=== PATIENT | male | born 1980 | race Caucasian/White ===

== ENCOUNTER 2019-03-12 09:19 | Observation (INO) ==
[2019-03-12] MEDS ORDERED: IOPAMIDOL 100 ML BOTTLE IV ONE (09:20)
[2019-03-12] MEDS ORDERED: 0.9 % SODIUM CHLORIDE 1,000 ML IV ONE (09:24)
[2019-03-12] MEDS ORDERED: PROMETHAZINE 25 MG/ML VIAL IM ONE (09:32)
[2019-03-12] MEDS ORDERED: 0.9 % SODIUM CHLORIDE 2,000 ML IV ONE (09:33)
--- NOTE | 2019-03-12 09:37 | Emergency Department Note ---
Nausea/Vomiting/Diarrhea HPI - General Chief complaint: Nausea/Vomiting/Diarrhea Stated complaint: nausea/vomiting x 1 hour Time Seen by Provider: 03/12/19 09:26 Source: patient Mode of arrival: ambulatory Limitations: no limitations - History of Present Illness HPI Narrative: 38-year-old male with a 1 hour history of nausea vomiting. He says he threw up everything in his stomach and noticed some blood in the vomitus. He does not describe coffee-ground emesis. He was at his primary care provider's office and when they pushed on his belly to examine him that when the vomiting started. He does have chronic nausea and was getting set up for endoscopy but he does not have an appointment yet. He has multiple allergies including 1 to Zofran Some shortness of breath occasionally. His significant other notes that he wakes up at night gasping for breath and occasionally vomits - Related Data Home Medications Medication Instructions Recorded Confirmed OLANZapine [Zyprexa] 20 mg PO DAILY 09/29/17 01/02/19 Omeprazole [PriLOSEC] 40 mg PO ACB 09/29/17 01/02/19 Amitriptyline HCl 150 mg PO HS 04/25/18 01/02/19 Previous Rx's Medication Instructions Recorded Omeprazole [Prilosec] 20 mg PO ACB #15 cap 04/25/18 Diphenoxylate HCl/Atropine 1 tab PO Q4HP PRN #15 tab 12/26/18 [Lomotil] Promethazine [Phenergan] 25 mg PO Q4-6HP PRN #12 tab 12/26/18 Allergies Allergy/AdvReac Type Severity Reaction Status Date / Time ciprofloxacin [From Cipro] Allergy Mild Swelling Verified 02/08/19 16:02 Penicillins Allergy Unknown Anaphylaxis Verified 02/08/19 16:02 cephalexin AdvReac Severe Anaphylaxis Verified 02/08/19 16:02 doxycycline [From Vibramycin] AdvReac Severe Anaphylaxis Verified 02/08/19 16:02 ondansetron AdvReac Unknown Other Verified 02/08/19 16:02 [From Zofran (as hydrochloride)] prochlorperazine AdvReac Unknown Other Verified 02/08/19 16:02 [From Compazine] ketorolac [From Toradol] AdvReac Anxiety Verified 02/08/19 16:02 Review of Systems All systems ED: reviewed and negative except as stated. Past Medical History - Past Medical History Attestation: Yes: The following information was validated with the patient. [facility] Narrative: Family History (Last Updated 02/08/19 @ 16:50 by Loy Tinsley DO) Father Pancreatic cancer Mother Diabetes mellitus, type 2 Brother Diabetes mellitus, type 2 Medical History (Last Updated 02/08/19 @ 16:49 by Loy Tinsely DO) Schizoaffective disorder (Chronic) History of acute pancreatitis (Resolved) Obesity (BMI 30.0-34.9) (Chronic) Gastritis (Resolved) Pneumonia (Resolved) Past Surgical History (Last Updated 12/26/18 @ 09:48 by Loy Tinsley DO) Status post appendectomy (Acute) Status post cholecystectomy (Acute) Medical history: Reports: GERD, pneumonia, other (pancreatitis - EtOH related. Right wrist fracture 2017. DENIES: Diverticulitis, kidney stones, pyelonephritis, peptic ulcer disease.). Denies: asthma, DVT, DM, hypertension, hypothyroidism, pulmonary embolus Psychiatric history: Reports: other (Schizoaffective disorder.). Denies: anxiety, depression Surgical history ED: Reports: appendectomy, cholecystectomy - Social History smoking status: Never smoker Alcohol use: Reports: None Drug use: Reports: marijuana (rare) Physical Exam Overweight male in some distress secondary to nausea and vomiting. Normocephalic atraumatic. Conjunctive are clear sclerae nonicteric. No nasal discharge or congestion. Oropharynx pink and moist. Posterior pharynx clear. Large tongue with [place]atti 4. Neck is supple without lymphadenopathy or thyromegaly. No carotid bruit. Heart is regular rate and rhythm no murmur appreciated. Lungs are clear to auscultation bilaterally without wheezes rales rhonchi or respiratory. Abdomen is soft nontender nondistended except for the epigastrium which is mildly tender. No pedal edema. +2 radial pulse. Alert oriented able answer questions per Limitations: no limitations Course Vital Signs Temperature 97.7 F 03/12/19 09:20 Pulse Rate 125 H 03/12/19 09:20 Respiratory Rate 24 H 03/12/19 09:20 Blood Pressure 113/69 03/12/19 09:20 Pulse Oximetry (%) 99 03/12/19 09:20 Temperature 97.7 F 03/12/19 09:20 Pulse Rate 88 03/12/19 13:30 Respiratory Rate 24 H 03/12/19 09:20 Blood Pressure 113/92 03/12/19 12:47 Pulse Oximetry (%) 86 L 03/12/19 13:30 Nausea/Vomiting/Diarrhea - Lab Data Lab results reviewed: Yes I reviewed the patient's lab results. Result diagrams: 03/12/19 09:53 03/12/19 09:53 Lab Results 03/12/19 03/12/19 03/12/19 Range/Units 09:48 09:53 09:53 WBC 11.4 H (4.5-11.0) K/mcL RBC 5.26 (4.50-5.90) M/mcL Hgb 15.3 (13.5-16.5) g/dL Hct 46.0 (41.0-55.0) % MCV 87.4 (80.0-100.0) fL MCH 29.0 (26.0-34.0) pg MCHC 33.2 (31.0-36.0) g/dL RDW 13.0 (11.5-14.5) % Plt Count 237 (140-440) K/mcL MPV 7.8 (7.4-10.4) fL Gran % 85.2 H (38.0-78.0) % Lymph % (Auto) 10.4 L (15.5-49.0) % [place] % (Auto) 4.1 (1.0-12.0) % Eos % (Auto) 0 (0.0-7.0) % Baso % (Auto) 0.3 (0.0-2.0) % Gran # 9.7 H (1.8-8.0) K/mcL Lymph # (Auto) 1.2 L (1.5-4.8) K/mcL [place] # (Auto) 0.5 (0.1-0.9) K/mcL Eos # (Auto) 0 (0.0-0.7) K/mcL Baso # (Auto) 0 (0.0-0.3) K/mcL VBG Lactic Acid (0.5-2.0) mmol/L Sodium 133 (133-145) mmol/L Potassium 3.9 (3.3-5.1) mmol/L Chloride 97 (96-108) mmol/L Carbon Dioxide 24 (22-30) mmol/L Anion Gap 12.0 (8-16) BUN 7 (6-20) mg/dl Creatinine 0.9 (0.7-1.2) mg/dl GFR Calculation 106 Glucose 110 H (70-105) mg/dL Calcium 8.7 (8.6-10.4) mg/dl Total Bilirubin 0.4 (0.0-1.0) mg/dL AST 18 (0-37) U/l ALT 25 (0-40) U/l Alkaline Phosphatase 93 (39-117) U/L Total Protein 7.4 (5.9-8.4) gm/dL Albumin 4.7 (3.2-5.2) gm/dL Globulin 2.7 (2.2-3.7) gm/dL Albumin/Globulin Ratio 1.7 (1.0-2.3) Amylase 98 (28-100) U/L Lipase 61 H (7-60) U/L Urine Color Straw Urine Appearance Clear Urine pH 5.0 (5.0-9.0) Ur Specific [place] 1.000 (1.000-1.035) Urine Protein Neg (NEG) mg/dL Urine Glucose (UA) Negative (NEG) mg/dL Urine Ketones Neg (NEG) mg/dL Urine Occult Blood Neg (<0.03) mg/dL Urine Nitrate Neg (NEG) Urine Bilirubin Neg (NEG) mg/dL Urine Urobilinogen Neg (NEG) mg/dL Ur Leukocyte Esterase Neg (NEG) /uL Urine RBC 0 (0-1) /hpf Urine WBC < 1 (0-4) /hpf Ur Squamous Epith Cells 0 (0-4) /hpf Urine Bacteria 0 (0) /hpf Urine Mucus Few (0) /hpf Ur Culture Indicated? No 03/12/19 Range/Units 11:35 WBC (4.5-11.0) K/mcL RBC (4.50-5.90) M/mcL Hgb (13.5-16.5) g/dL Hct (41.0-55.0) % MCV (80.0-100.0) fL MCH (26.0-34.0) pg MCHC (31.0-36.0) g/dL RDW (11.5-14.5) % Plt Count (140-440) K/mcL MPV (7.4-10.4) fL Gran % (38.0-78.0) % Lymph % (Auto) (15.5-49.0) % [place] % (Auto) (1.0-12.0) % Eos % (Auto) (0.0-7.0) % Baso % (Auto) (0.0-2.0) % Gran # (1.8-8.0) K/mcL Lymph # (Auto) (1.5-4.8) K/mcL [place] # (Auto) (0.1-0.9) K/mcL Eos # (Auto) (0.0-0.7) K/mcL Baso # (Auto) (0.0-0.3) K/mcL VBG Lactic Acid 1.2 (0.5-2.0) mmol/L Sodium (133-145) mmol/L Potassium (3.3-5.1) mmol/L Chloride (96-108) mmol/L Carbon Dioxide (22-30) mmol/L Anion Gap (8-16) BUN (6-20) mg/dl Creatinine (0.7-1.2) mg/dl GFR Calculation Glucose (70-105) mg/dL Calcium (8.6-10.4) mg/dl Total Bilirubin (0.0-1.0) mg/dL AST (0-37) U/l ALT (0-40) U/l Alkaline Phosphatase (39-117) U/L Total Protein (5.9-8.4) gm/dL Albumin (3.2-5.2) gm/dL Globulin (2.2-3.7) gm/dL Albumin/Globulin Ratio (1.0-2.3) Amylase (28-100) U/L Lipase (7-60) U/L Urine Color Urine Appearance Urine pH (5.0-9.0) Ur Specific [place] (1.000-1.035) Urine Protein (NEG) mg/dL Urine Glucose (UA) (NEG) mg/dL Urine Ketones (NEG) mg/dL Urine Occult Blood (<0.03) mg/dL Urine Nitrate (NEG) Urine Bilirubin (NEG) mg/dL Urine Urobilinogen (NEG) mg/dL Ur Leukocyte Esterase (NEG) /uL Urine RBC (0-1) /hpf Urine WBC (0-4) /hpf Ur Squamous Epith Cells (0-4) /hpf Urine Bacteria (0) /hpf Urine Mucus (0) /hpf Ur Culture Indicated? - Radiology Data Radiology results reviewed: Yes I reviewed the patient's radiology results. X-ray of the abdomen 2 views shows no acute findings CT scan abdomen and pelvis does not show any significant findings Disposition Pt seen by COOPERATIVE EXTENSION AGENT/PA only: No Clinical Impression: Intractable nausea and vomiting Qualifiers: Vomiting type: unspecified Qualified Code(s): R11.2 - Nausea with vomiting, unspecified Summary: Sudden onset vomiting and patient with chronic nausea. Suspect gastritis versus obstruction versus drug-induced. Work-up ordered with x-ray 2 views of the abdomen as well as laboratory. Start treatment with IV fluids and Iv Phenergan as the patient is a hard stick and is allergic to Zofran. He was given Reglan and Benadryl per request as the Phenergan did not control his nausea. He is complaining of severe belly pain so Carafate and Protonix were added He could not hold down Carafate or GI cocktail. Repeat dose of Phenergan. CT scan of the abdomen and pelvis was done for intractable vomiting as x-ray was unremarkable. Given single dose of Dilaudid because he is complaining of stabbing pain He continued to have uncontrolled nausea and vomiting and could not hold down oral contrast for CT the abdomen pelvis. Given another dose of half a milligram Dilaudid. CT scan of the abdomen pelvis with only IV contrast does not show any significant cause Discussed case with Dr. Dickinson, our hospitalist, who agreed to accept the patient for observation for intractable nausea vomiting. Consider upper endoscopy for gastritis. Disposition: Home, Self-Care Condition: Fair Referrals: Jose Robin ARNP [Primary Care Provider] -
[2019-03-12] MEDS ORDERED: PANTOPRAZOLE 40 MG VIAL IV ONE (10:05)
--- NOTE | 2019-03-12 10:13 | XRay Report ---
CLINICAL INFORMATION: Nausea and vomiting TECHNIQUE: Supine and upright abdomen COMPARISON: CT scan dated 12/25/2018. Plain film examination dated 04/25/2018 FINDINGS: Surgical clips in the right upper quadrant consistent with cholecystectomy. Gas and fecal material within the colon. No dilated gas-filled small bowel. Bowel gas pattern is unremarkable. No evidence for mechanical small bowel obstruction. There is no pneumoperitoneum. No biliary or portal venous gas. No pneumatosis. IMPRESSION: 1. Nonspecific and nonobstructive bowel gas pattern 2. No acute or focal abnormality. No interval change since CT scan dated 12/25/2018 Interpreted and Authenticated by: Rylan Pinedo 03/12/19
[2019-03-12] MEDS ORDERED: METOCLOPRAMIDE 10 MG/2 ML VIAL IV ONE (10:15)
[2019-03-12] MEDS ORDERED: diphenhydrAMINE 50 MG/ML VIAL IV ONE (10:22)
[2019-03-12 10:33] LABS: Basophils # (Auto) 0 K/mcL (0.0-0.3); Basophils % (Auto) 0.3 % (0.0-2.0); Eosinophils # (Auto) 0 K/mcL (0.0-0.7); Eosinophils % (Auto) 0 % (0.0-7.0); Granulocytes % (Auto) 85.2 % (38.0-78.0); Lymphocytes # (Auto) 1.2 K/mcL (1.5-4.8); Lymphocytes % (Auto) 10.4 % (15.5-49.0); Mean Cell Volume 87.4 fL (80.0-100.0); Mean Corpuscular HGB Conc 33.2 g/dL (31.0-36.0); Monocytes # (Auto) 0.5 K/mcL (0.1-0.9); Monocytes % (Auto) 4.1 % (1.0-12.0); Platelet Count 237 K/mcL (140-440); RBC 5.26 M/mcL (4.50-5.90)
[2019-03-12] MEDS: PHENobarb/HYOSCY/ATROPINE/SCOP 1 DOSE BOTTLE PO ONE (10:39)
[2019-03-12 10:52] LABS: Appearance,Urine CLEAR; Bacteria,Urine 0 /hpf (0); Bilirubin,Urine NEG (NEG); Color,Urine STRAW; Glucose,Urine (UA) NEGATIVE (NEG); Leukocyte Esterase,Urine NEG /uL (NEG); Mucus,Urine FEW /hpf (0); Protein,Urine NEG (NEG); Urine Blood NEG mg/dL (<0.03); Urine RBC 0 /hpf (0-1); Urine Squamous Epithelial Cell 0 /hpf (0-4); Urine WBC < 1 /hpf (0-4); Urobilinogen,Urine NEG (NEG)
[2019-03-12 10:53] LABS: ALT/SGPT 25 U/l (0-40); Albumin 4.7 gm/dL (3.2-5.2); Albumin/Globulin Ratio 1.7 (1.0-2.3); Alkaline Phosphatase 93 U/L (39-117); Amylase 98 U/L (28-100); Blood Urea Nitrogen 7 mg/dl (6-20); Lipase 61 U/L (7-60)
[2019-03-12] MEDS ORDERED: SUCRALFATE 1 GM/10 ML ORAL.SUSP PO ONE (10:54)
[2019-03-12] MEDS ORDERED: PROMETHAZINE 25 MG/ML VIAL IV ONE (11:12)
[2019-03-12] MEDS ORDERED: HYDROmorphone 2 MG/ML VIAL IV SCH (11:15)
[2019-03-12] MEDS ORDERED: HYDROmorphone 2 MG/ML VIAL IV ONE (13:16)
--- NOTE | 2019-03-12 13:45 | Cat Scan Report ---
CLINICAL INFORMATION: Nausea and vomiting COMPARISON: Previous examination dated 12/25/2018 TECHNIQUE: Axial images were obtained through the abdomen and pelvis. Sagittally and coronally reformatted images. 80 mL contrast material injected intravenously. Oral contrast material was given FINDINGS: Lung bases are negative. No parenchymal infiltrate or mass. There is a nonacute healed fracture of the right eighth rib no pleural fluid. No pericardial fluid. Negative liver. No focal intrahepatic abnormality. There are surgical clips in the gallbladder fossa. No dilated bile ducts. Common bile duct measures approximately 6 mm in diameter. Pancreas is negative. No pancreatic mass. No peripancreatic abnormality. Spleen is negative. No splenomegaly. Normal enhancement of the splenic and portal vein. Negative adrenal glands. Kidneys are negative. No solid or cystic mass. No hydronephrosis or hydroureter. The urinary bladder wall is mildly thickened in a diffuse fashion. Significance is not certain. Findings may be related to cystitis. There is no discrete mass identified. There is no bladder calculus. Colon is negative. No diverticulosis or diverticulitis. The appendix is not well-visualized. There is no evidence for appendicitis. There is no mechanical small bowel obstruction. No dilated small bowel. There is no pelvic mass. No pelvic fluid. No pneumoperitoneum. No biliary or portal venous gas. No significant mesenteric lymphadenopathy. There is no retroperitoneal lymphadenopathy. Lumbar spine, sacrum, pelvis are negative. IMPRESSION: 1. Mildly thickened bladder wall without focal mass or calculus 2. Nonvisualization of the appendix. No evidence for appendicitis. No findings of diverticulitis 3. Previous cholecystectomy. Mildly prominent common bile duct without intrahepatic bile duct dilatation or detectable choledocholithiasis The exam was performed using radiation dose optimization techniques including, but not limited to, automated exposure control, adjustment of the mA and/or kV according to patient size and use of iterative reconstruction technique. Interpreted and Authenticated by: Rylan Pinedo 03/12/19
--- NOTE | 2019-03-12 14:51 | Internal Med History&Physical ---
Medical - H&P: HPI Patient information: Note initiated : 03/12/19 at 2:43 pm Service Date, if different from initiated Date: [] Patient: Gume Hobson a 38 y/o M admitted on for N/V x 1 Hour. Chief Complaint: [] History of present illness: Mr. Hobson is a 38 year old M with history of bipolar disorder, schizoaffective disorder, presents to the emergency room with his for evaluation of abdominal pain nausea and vomiting. The patient notes that he is has been having nausea vomiting, abdominal pain and some diarrhea going on for the last few months, he has been following up with his primary care provider for same. He was at his primary care provider's office today when during exam, when the PCP was examining his abdomen he developed nausea and vomiting and started throwing up, total of 8-10 times with some blood in the vomitus. The patient therefore came to the emergency room for further evaluation. Abdominal pain is epigastric in nature, radiates to the back. Worsened with food. The patient admits to having intermittent dark stools but does not correct right stools as melena, no bright red blood stools. The patient has a history of strong alcohol use, notes he started drinking at the age of 3 and drank for 30 years, was diagnosed with the cirrhosis of liver at age of 7?. He has not drank alcohol since nearly 1-1/2 years. He denies any other occasional substance use. He admits to use of ibuprofen twice a week. He takes Prilosec and Phenergan as an outpatient, his primary care provider was in the process of referring him to a GI specialist when because of his acute change in condition he was sent to the emergency room. In the emergency room on presentation patient was hemodynamically stable, appears calm however does rate his pain in the abdomen at 7, has received multiple medications without any relief. CT abdomen and pelvis is negative. Labs show mild leukocytosis, his lipase is at 61 otherwise labs are unremarkable. Urine negative urine drug screen pending. Based on chart review at outside facilities it seems that the patient has at least had 2 upper endoscopies , one I believe done was Zhang, the findings Z line was irregular and found at 38 cm from the incisors esophageal mucosal changes suggestive of short segment Monahan's esophagus present in the lower one third of the esophagus otherwise no other duodenal or gastric ulcers no signs of varices were noted pathology of this EGD is not available. The patient had another EGD done in February 2017, according to that EGD it showed of the GE junction was irritated however no Monahan's esophagus are normal ulcers were noted no varices were noted. In February 2017 it seems that the concern was upper GI bleed and based on the EGD findings the physician reported that the source of the bleed was likely posterior nasal region rather than upper GI tract. The EGD scope he biopsy done in February 2017 was negative for H. pylori and junctional mucosa with mild reflux pattern changes, celiac panel sent last year was negative I do not have a report of colonoscopy however I do have a colon biopsy report done in October [address] Glover. 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 Given that the patient has abdominal pain unable to tolerate p.o. according to him and his , some blood when he vomited patient is being admitted to observation for upper endoscopy. GI has been consulted Review of systems: CONSTITUTIONAL: No weight loss, fever, chills, weakness or fatigue. HEENT: Eyes: No visual loss, blurred vision, double vision or yellow sclerae. Ears, Nose, Throat: No hearing loss, sneezing, congestion, runny nose or sore throat. SKIN: No rash or itching. CARDIOVASCULAR: No chest pain, chest pressure or chest discomfort. No palpitations or edema. RESPIRATORY: No shortness of breath, cough or sputum. GASTROINTESTINAL: Abdominal pain present, diarrhea present to 3 times, nausea and vomiting present GENITOURINARY: Denies Burning on urination. Blood in urine, or foul smelling urine NEUROLOGICAL: No headache, dizziness, syncope, paralysis, tremors, numbness or tingling in the extremities. No change in bowel or bladder control. MUSCULOSKELETAL: No muscle, back pain, joint pain or stiffness. HEMATOLOGIC: No bleeding or bruising. No enlarged nodes PSYCHIATRIC: No depression or anxiety. ENDOCRINOLOGIC: No reports of sweating, cold or heat intolerance. No polyuria or polydipsia. ALLERGIES: No hives, eczema or rhinitis. Skin: No rash, no jaundice, cyanosis or pallor. Medical - H&P: [facility] Medical history: Medical History (Last Updated 02/08/19 @ 16:49 by Loy Tinsley DO) Schizoaffective disorder (Chronic) History of acute pancreatitis (Resolved) Obesity (BMI 30.0-34.9) (Chronic) Gastritis (Resolved) Pneumonia (Resolved) Surgical history: Past Surgical History (Last Updated 12/26/18 @ 09:48 by Loy Tinsley DO) Status post appendectomy (Acute) Status post cholecystectomy (Acute) Family history: reviewed and not pertinent Medical - H&P: Meds Home Medications Medication Instructions Recorded Confirmed Type OLANZapine [Zyprexa] 20 mg PO DAILY 09/29/17 01/02/19 History Omeprazole [PriLOSEC] 40 mg PO ACB 09/29/17 01/02/19 History Amitriptyline HCl 150 mg PO HS 04/25/18 01/02/19 History Omeprazole [Prilosec] 20 mg PO ACB #15 cap 04/25/18 01/02/19 Rx Diphenoxylate HCl/Atropine 1 tab PO Q4HP PRN #15 tab 12/26/18 01/02/19 Rx [Lomotil] Promethazine [Phenergan] 25 mg PO Q4-6HP PRN #12 tab 12/26/18 01/02/19 Rx Allergies Allergy/AdvReac Type Severity Reaction Status Date / Time ciprofloxacin [From Cipro] Allergy Mild Swelling Verified 02/08/19 16:02 Penicillins Allergy Unknown Anaphylaxis Verified 02/08/19 16:02 cephalexin AdvReac Severe Anaphylaxis Verified 02/08/19 16:02 doxycycline [From Vibramycin] AdvReac Severe Anaphylaxis Verified 02/08/19 16:02 ondansetron AdvReac Unknown Other Verified 02/08/19 16:02 [From Zofran (as hydrochloride)] prochlorperazine AdvReac Unknown Other Verified 02/08/19 16:02 [From Compazine] ketorolac [From Toradol] AdvReac Anxiety Verified 02/08/19 16:02 Medical - H&P: Exam - Constitutional Vitals: Temp Pulse Resp BP Pulse Ox 97.7 F 108 H 24 H 110/86 96 03/12/19 09:20 03/12/19 14:38 03/12/19 09:20 03/12/19 14:32 03/12/19 14:38 Exam: GENERAL: The patient is a well-developed, well-nourished in no apparent distress. Is alert and oriented x3. VITAL SIGNS: Reviewed and as noted elsewhere. HEENT: Head is normocephalic and atraumatic. Extraocular muscles are intact. Pupils are equal, round, and reactive to light. Nares appeared normal. Mouth appears any without lesions. Mucous membranes are moist. NECK: Normal to inspection, Supple, No lymphadenopathy or thyromegaly. LUNGS: Air entry equal on both sides, no wheezing, crackles or rhonchi noted. No accessory muscles of respiration HEART: Regular rate and rhythm normal, S1 and S2 heard, no Gallop, S3 or Rub Noted, No Gross murmur heard. ABDOMEN: Soft, epigastric tenderness reported, and nondistended. Positive bowel sounds. No hepatosplenomegaly was noted. EXTREMITIES: No cyanosis, clubbing, rash, lesions or edema. NEUROLOGIC: Cranial nerves II through XII are grossly intact. Motor and Sensory System Grossly Intact PSYCHIATRIC: Normal affect, Normal Mood. Appropriate Behavior. SKIN: No ulceration or wounds noted, No jaundice, No rash noted. Medical - H&P: Reslt - Labs CBC & Chem 7: 03/12/19 09:53 03/12/19 09:53 Labs: Short CBC 03/12/19 Range/Units 09:53 WBC 11.4 H (4.5-11.0) K/mcL Hgb 15.3 (13.5-16.5) g/dL Hct 46.0 (41.0-55.0) % Plt Count 237 (140-440) K/mcL BMP 03/12/19 09:53 Sodium 133 Potassium 3.9 Chloride 97 Carbon Dioxide 24 BUN 7 Creatinine 0.9 Glucose 110 H Calcium 8.7 Liver Function 03/12/19 Range/Units 09:53 Total Bilirubin 0.4 (0.0-1.0) mg/dL AST 18 (0-37) U/l ALT 25 (0-40) U/l Alkaline Phosphatase 93 (39-117) U/L Albumin 4.7 (3.2-5.2) gm/dL Urine 03/12/19 Range/Units 09:48 Urine Color Straw Urine Appearance Clear Urine pH 5.0 (5.0-9.0) Ur Specific [place] 1.000 (1.000-1.035) Urine Protein Neg (NEG) mg/dL Urine Glucose (UA) Negative (NEG) mg/dL Medical - H&P: A/P - Narrative A/P Narrative: A/P Abdominal pain Nausea and Vomiting Microscopic Colitis GERD/ Gastritis Obesity BMI 34 Schizoaffective disorder Bipolar disorder Plan Admit to med surg as obs IV apap for pain, no e/o cirrhosis on CT IV PPI GI consulted EGD hopefully today. will consider Ketamine for pain management, if needed, Given very strong history of etoh, ? chr pancreatitis is plausible. DVT SCD GI ppi DIet NPO Full code. Social History - Tobacco smoking status: Never smoker
[2019-03-12 14:59] LABS: Amphetamine Screen,Urine NONE DETECTED (NONDETECTED); Benzodiazepines Screen,Urine NONE DETECTED (NONDETECTED); Cocaine Screen,Urine NONE DETECTED (NONDETECTED); Opiate Screen,Urine NONE DETECTED (NONDETECTED); Oxycodone, Urine Screen NONE DETECTED (NONDETECTED)
[2019-03-12] MEDS ORDERED: ACETAMINOPHEN 650 MG/65 ML BOTTLE IV PRN (15:25)
[2019-03-12] MEDS ORDERED: NALOXONE HCL 0.4 MG/ML VIAL IV PRN (15:25)
[2019-03-12] MEDS ORDERED: DIPHENOXYLATE HCL/ATROPINE 1 TABLET PO PRN (16:16)
[2019-03-12] MEDS ORDERED: LORazepam 1 MG TABLET PO PRN (16:16)
--- NOTE | 2019-03-12 17:39 | Internal Medicine Consult Note ---
Medical - CN: HPI - Data of Consult Patient: new to practice Consult date: 03/12/19 Primary Care Provider: Jose Robin - Consult Narrative Reason for consult: hematemesis, epigastric pain, nausea, vomiting, diarrhea History of present illness: Mr. Hobson is a 38 year old M with a history of alcohol abuse with self reported recurrent acute alcoholic pancreatitis ("at least 30 episodes") who presents for evaluation of a 2 month history of constant, steady epigastric pain that radiates to the back and is exacerbated by eating. It is accompanied with nausea that is present upon awakening and he vomits bilious emesis or food he recently ate 10-15 times day. Today, he was at his PCP's visit, began to vomit bilious emesis, followed by coffee ground emesis, then red hematemesis. He has not had any recurrence for 3 hours. His pain is unrelieved with tylenol and persists despite PPI therapy. 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 Weight is down 20lbs in the last 3 months. He uses ibuprofen twice weekly. He denies melena. He uses marijuana about once a month. Promethazine helps his nausea somewhat but doesn't stop his vomiting. He denies any history of migraine headache. He complains of chronic diarrhea up to 5 times day with some bright red blood on the toilet paper and "grease" with wiping. Previous colonoscopy pathology report from 10/25/2017 shows patchy intraepithelial lymphocytosis, perhaps suggesting early lymphocytic colitis. He passes solid formed stool on occasion. is at the bedside. She has noticed Raynaud's phenomenon in his hands. CC: Cornelius Dickinson All systems: reviewed and no additional remarkable complaints except as stated - Constitutional Constitutional: Present: as per HPI, weight loss. Absent: anorexia, headache(s) - Gastrointestinal Gastrointestinal: Present: abdominal pain, coffee ground emesis, diarrhea, hematemesis, vomiting. Absent: dysphagia, early satiety, heartburn, hematochezia, melena Medical - CN: PMH Medical history: Schizoaffective disorder, bipolar, ETOH abuse, obesity, pancreatitis (suspect alcoholic) Surgical history: Cholecystectomy, appendectomy Pertinent family history: Father had pancreatic cancer Social history: . Lives with . Smoking status: Unknown if ever smoked Drug use: marijuana Alcohol use: sober Medical - CN: Meds Home Medications Medication Instructions Recorded Confirmed Type OLANZapine [Zyprexa] 20 mg PO HS 09/29/17 03/12/19 History Omeprazole [PriLOSEC] 40 mg PO ACB 09/29/17 03/12/19 History Diphenoxylate HCl/Atropine 1 tab PO Q4HP PRN #15 tab 12/26/18 03/12/19 Rx [Lomotil] LORazepam [Ativan] 2 mg PO BIDP PRN 03/12/19 03/12/19 History Lurasidone HCl [Latuda] 20 mg PO QPM 03/12/19 03/12/19 History Promethazine [Phenergan] 50 mg PO Q4-6HP PRN 03/12/19 03/12/19 History Allergies Allergy/AdvReac Type Severity Reaction Status Date / Time cephalexin Allergy Severe Anaphylaxis Verified 03/12/19 15:27 doxycycline [From Vibramycin] Allergy Severe Anaphylaxis Verified 03/12/19 15:27 Penicillins Allergy Severe Anaphylaxis Verified 03/12/19 15:27 ciprofloxacin [From Cipro] Allergy Mild Swelling Verified 02/08/19 16:02 ketorolac [From Toradol] AdvReac Mild Anxiety Verified 03/12/19 15:27 ondansetron AdvReac Unknown Other Verified 02/08/19 16:02 [From Zofran (as hydrochloride)] prochlorperazine AdvReac Unknown Other Verified 02/08/19 16:02 [From Compazine] Medical - CN: Exam - Constitutional Vitals: Temp Pulse Resp BP Pulse Ox 98.3 F 95 H 20 122/83 99 03/12/19 16:00 03/12/19 16:00 03/12/19 16:00 03/12/19 16:00 03/12/19 16:00 General appearance: average body habitus, cooperative, no acute distress - Head Head exam: Present: atraumatic, normal inspection, normocephalic - Eye Eye exam: Present: normal appearance, PERRL - ENT ENT exam: Present: mucous membranes moist - Neck Neck exam: Present: normal inspection. Absent: lymphadenopathy, thyromegaly - Respiratory Respiratory exam: Present: normal respiratory exam, CTAB. Absent: accessory muscle use, rales, rhonchi, stridor, wheezes - Cardiovascular Cardiovascular exam: Present: normal rate and rhythm. Absent: gallop, rubs, systolic murmur - GI/Abdominal GI/Abdominal exam: Present: normal bowel sounds, firm, tenderness. Absent: hernia, organomegaly Additional comments: Epigastric tenderness. No ascites. No caput medusa. - Expanded GI/Abdominal Exam GI/Abdominal exam: Absent: Clinton's sign, tenderness at McBurney's Point - Neurological Exam Neurological exam: Present: alert - Psychiatric Psychiatric exam: Present: anxious - Skin Skin exam: Present: dry (no stigmata of chronic liver disease), normal color, warm Medical - CN: Result - Labs CBC & Chem 7: 03/12/19 09:53 03/12/19 09:53 Labs: Short CBC 03/12/19 Range/Units 09:53 WBC 11.4 H (4.5-11.0) K/mcL Hgb 15.3 (13.5-16.5) g/dL Hct 46.0 (41.0-55.0) % Plt Count 237 (140-440) K/mcL BMP 03/12/19 09:53 Sodium 133 Potassium 3.9 Chloride 97 Carbon Dioxide 24 BUN 7 Creatinine 0.9 Glucose 110 H Calcium 8.7 Liver Function 03/12/19 Range/Units 09:53 Total Bilirubin 0.4 (0.0-1.0) mg/dL AST 18 (0-37) U/l ALT 25 (0-40) U/l Alkaline Phosphatase 93 (39-117) U/L Albumin 4.7 (3.2-5.2) gm/dL Urine 03/12/19 Range/Units 09:48 Urine Color Straw Urine Appearance Clear Urine pH 5.0 (5.0-9.0) Ur Specific [place] 1.000 (1.000-1.035) Urine Protein Neg (NEG) mg/dL Urine Glucose (UA) Negative (NEG) mg/dL Medical - CN: A/P (1) Hematemesis with nausea Status: Acute (2) Epigastric pain Status: Acute Assessment and plan: I reviewed his case with Dr. Meeks. We will arrange for EGD to further evaluate his hematemesis, epigastric pain, diarrhea and weight loss. Complex hiatal hernia with John's ulcer, peptic ulcer disease, malabsorptive process like celiac or Crohn's, among others are on the differential. The patient has no overt signs of cirrhosis, so variceal bleeding is less likely. Chronic alcoholic pancreatitis is also a possibility. As you know the pancreas and lipase can be normal in mild chronic pancreatitis. If EGD is unrevealing, MRCP or EUS may be helpful as well as checking a 72 hour fecal fat for steatorrhea.
[2019-03-12] MEDS ORDERED: KETAMINE HCL 50 MG/ML ML IV PRN (17:40)
[2019-03-12] MEDS ORDERED: PROPOFOL 20 ML IV ONE (17:44)
[2019-03-12] MEDS ORDERED: MIDAZOLAM 2 MG/2 ML VIAL ONE (17:45)
[2019-03-12] MEDS ORDERED: MIDAZOLAM 2 MG/2 ML VIAL IV SCH (17:45)
[2019-03-12] MEDS ORDERED: PROPOFOL 200 MG/20 ML VIAL IV SCH (17:45)
[2019-03-12] MEDS ORDERED: LORazepam 2 MG/ML VIAL IV ONE (18:47)
[2019-03-12] MEDS ORDERED: KETOROLAC 15 MG/ML VIAL IV ONE (18:48)
[2019-03-12] MEDS: PANTOPRAZOLE 40 MG VIAL IV SCH (19:15)
[2019-03-12 19:43] LABS: Basophils # (Auto) 0 K/mcL (0.0-0.3); Basophils % (Auto) 0.2 % (0.0-2.0); Eosinophils # (Auto) 0 K/mcL (0.0-0.7); Eosinophils % (Auto) 0.2 % (0.0-7.0); Granulocytes % (Auto) 59.1 % (38.0-78.0); Lymphocytes # (Auto) 2.9 K/mcL (1.5-4.8); Lymphocytes % (Auto) 33.4 % (15.5-49.0); Mean Cell Volume 86.2 fL (80.0-100.0); Mean Corpuscular HGB Conc 33.9 g/dL (31.0-36.0); Monocytes # (Auto) 0.6 K/mcL (0.1-0.9); Monocytes % (Auto) 7.1 % (1.0-12.0); Platelet Count 222 K/mcL (140-440); RBC 4.93 M/mcL (4.50-5.90); Red Cell Distribution Width 13.2 % (11.5-14.5)
[2019-03-12] MEDS ORDERED: AMITRIPTYLINE 25 MG TABLET PO SCH ×2 (21:00)
[2019-03-12] MEDS ORDERED: OLANZapine 5 MG TABLET PO SCH (21:00)
[2019-03-12] MEDS ORDERED: LURASIDONE HCL 20 MG PO SCH (21:00)
[2019-03-12] MEDS ORDERED: METHOCARBAMOL 1,000 MG/10 ML VIAL IV ONE (21:07)
[2019-03-12] MEDS ORDERED: METHOCARBAMOL 1,000 MG/10 ML VIAL ONE (21:18)
[2019-03-12] MEDS: PROMETHAZINE 25 MG/ML VIAL IV PRN (22:14)
[2019-03-12] MEDS: 0.9 % SODIUM CHLORIDE 10 ML SYRINGE IV SCH (22:14)
[2019-03-13] MEDS: PANTOPRAZOLE 40 MG VIAL IV SCH (07:10)
[2019-03-13] MEDS: 0.9 % SODIUM CHLORIDE 10 ML SYRINGE IV SCH (07:11)
[2019-03-13] MEDS: PROMETHAZINE 25 MG/ML VIAL IV PRN (07:37)
--- NOTE | 2019-03-13 08:06 | Discharge Summary ---
Medical - DS: Prov Patient information: Note initiated : 03/13/19 at 8:03 am Service Date, if different from initiated Date: [] Patient: Gume Hobson 38 y/o M admitted on 03/12/19 for N/V x 1 Hour. Chief Complaint: [] Date of admission: 03/12/19 15:22 Discharge date: 03/13/19 Primary care physician: Jose Robin Consults: 03/12/19 14:06 Consult to Physician [CONS] Stat Comment: Consulting Provider: Cornelius Dickinson Reason For Exam: Physician to Consult 03/12/19 15:25 Consult to Physician [CONS] Stat Comment: Consulting Provider: Kristi Ramirez Reason For Exam: Physician to Consult Discharging clinician: Cornelius Dickinson Medical - DS: Meds - Discharge Medications Active and Home Medications: Home Medications OLANZapine [Zyprexa] 20 mg PO HS 09/29/17 [History Confirmed 03/12/19 Last Taken Unknown] Omeprazole [PriLOSEC] 40 mg PO ACB 09/29/17 [History Confirmed 03/12/19 Last Taken 03/12/19 07:00] Diphenoxylate HCl/Atropine [Lomotil] 1 tab PO Q4HP PRN #15 tab 12/26/18 [Rx Confirmed 03/12/19 Last Taken Unknown] LORazepam [Ativan] 2 mg PO BIDP PRN 03/12/19 [History Confirmed 03/12/19 Last Taken 03/11/19 17:00] Lurasidone HCl [Latuda] 20 mg PO QPM 03/12/19 [History Confirmed 03/12/19 Last Taken 03/11/19 17:00] Promethazine [Phenergan] 50 mg PO Q4-6HP PRN 03/12/19 [History Confirmed 03/12/19 Last Taken 03/11/19 15:00] Medical - DS: Hosp Hospital course: Mr. Hobson is a 38 year old M with history of bipolar disorder, schizoaffective disorder, presents to the emergency room with his for evaluation of abdominal pain nausea and vomiting. The patient notes that he is has been having nausea vomiting, abdominal pain and some diarrhea going on for the last few months, he has been following up with his primary care provider for same. He was at his primary care provider's office today when during exam, when the PCP was examining his abdomen he developed nausea and vomiting and started throwing up, total of 8-10 times with some blood in the vomitus. The patient therefore came to the emergency room for further evaluation. Abdominal pain is epigastric in nature, radiates to the back. Worsened with food. The patient admits to having intermittent dark stools but does not correct right stools as melena, no bright red blood stools. The patient has a history of strong alcohol use, notes he started drinking at the age of 3 and drank for 30 years, was diagnosed with the cirrhosis of liver at age of 7?. He has not drank alcohol since nearly 1-1/2 years. He denies any other occasional substance use. He admits to use of ibuprofen twice a week. He takes Prilosec and Phenergan as an outpatient, his primary care provider was in the process of referring him to a GI specialist when because of his acute change in condition he was sent to the emergency room. In the emergency room on presentation patient was hemodynamically stable, appears calm however does rate his pain in the abdomen at 7, has received multiple medications without any relief. CT abdomen and pelvis is negative. Labs show mild leukocytosis, his lipase is at 61 otherwise labs are unremarkable. Urine negative urine drug screen pending. Based on chart review at outside facilities it seems that the patient has at least had 2 upper endoscopies , one I believe done was Zhang, the findings Z line was irregular and found at 38 cm from the incisors esophageal mucosal changes suggestive of short segment Monahan's esophagus present in the lower one third of the esophagus otherwise no other duodenal or gastric ulcers no signs of varices were noted pathology of this EGD is not available. The patient had another EGD done in February 2017, according to that EGD it showed of the GE junction was irritated however no Monahan's esophagus are normal ulcers were noted no varices were noted. In February 2017 it seems that the concern was upper GI bleed and based on the EGD findings the physician reported that the source of the bleed was likely posterior nasal region rather than upper GI tract. The EGD scope he biopsy done in February 2017 was negative for H. pylori and junctional mucosa with mild reflux pattern changes, celiac panel sent last year was negative I do not have a report of colonoscopy however I do have a colon biopsy report done in [place] [address] Glover. 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 Given that the patient has abdominal pain unable to tolerate p.o. according to him and his , some blood when he vomited patient is being admitted to observation for upper endoscopy. GI has been consulted 03/13 Pt seen examined, s/p EGD negative, plan of care reviewed with GI, pt dose of amitrypline was cut back, which may have lead the some abdominal pain. Pain likely functional/ vs chr pancreatitis. outpatient GI follow up Pt was unhappy that we were not giving him narcotic pain medications, last night I explained to him, I was not finding any reason to use narcotic pain medication. He did not exhibit any visible sign of pain or distress last night or this AM He was eating his breakfast quite well this AM. He will be discharged and he will follow up outpatient with GI and PCP Discharge diagnosis: Abdominal pain - Time Spent with Patient Total time spent providing and/or coordinating discharge services: Less than 30 minutes Medical - DS: Exam - Constitutional Vitals: Vital Signs Temp Pulse Pulse Resp BP BP Pulse Ox 03/13/19 06:30 98.6 F 99 H 16 129/87 92 03/13/19 04:36 97.7 F 64 16 105/74 93 03/13/19 00:02 97.6 F 99 H 16 105/69 94 03/12/19 19:27 97.9 F 92 H 16 112/76 03/12/19 18:10 94 H 16 116/86 98 03/12/19 17:59 94 H 18 122/81 95 03/12/19 16:00 98.3 F 95 H 20 122/83 99 03/12/19 15:34 98.3 F 95 H 20 122/83 99 03/12/19 15:25 97.7 F 91 H 24 H 119/79 100 03/12/19 14:47 91 H 119/79 100 03/12/19 14:38 108 H 96 03/12/19 14:32 110/86 03/12/19 14:17 106 H 108/83 95 03/12/19 14:02 90 114/77 94 03/12/19 13:47 95 H 112/86 93 03/12/19 13:44 104 H 107/80 95 03/12/19 13:30 88 86 L 03/12/19 12:47 110 H 113/92 98 03/12/19 12:32 103 H 121/78 97 03/12/19 12:24 95 H 117/79 99 03/12/19 11:32 115/81 03/12/19 11:20 123/94 03/12/19 11:02 119/90 03/12/19 10:48 112/98 03/12/19 10:33 62 122/91 78 L 03/12/19 10:17 96 H 138/102 85 L 03/12/19 10:12 72 124/89 77 L 03/12/19 09:35 132/91 03/12/19 09:20 97.7 F 125 H 24 H 113/69 99 Intake and Output 03/12/19 03/13/19 03/13/19 21:59 05:59 13:59 Intake Total 1065 1080 Output Total 600 300 Balance 465 780 Intake: IV 1065 Sodium Chloride 0.9% 2,000 ml @ 1000 Wide Open IV .Q0M ONE Rx#: [id number] Oral 1080 Output: Void Amount 600 Emesis 300 Other: Urine Appearance Clear Urine Color Straw # Voids 1 Weight 211 lb Additional comments: Constitutional; Afebrile, cooperative, alert, not in distress. Ears- Ext ear normal, hearing normal to conversation. Neck- Midline trachea, supple [employer]- AOOx3, moving all extremities, no gross focal deficit noted. Medical - DS: Data Labs on day of discharge: Labs from last 24 hours 03/12/19 03/12/19 03/12/19 19:03 14:25 11:35 WBC 8.6 RBC 4.93 Hgb 14.4 Hct 42.4 MCV 86.2 MCH 29.2 MCHC 33.9 RDW 13.2 Plt Count 222 MPV 7.4 Gran % 59.1 Lymph % (Auto) 33.4 Morris % (Auto) 7.1 Eos % (Auto) 0.2 Baso % (Auto) 0.2 Gran # 5.1 Lymph # (Auto) 2.9 Morris # (Auto) 0.6 Eos # (Auto) 0 Baso # (Auto) 0 VBG Lactic Acid 1.2 Sodium Potassium Chloride Carbon Dioxide Anion Gap BUN Creatinine GFR Calculation Glucose Calcium Total Bilirubin AST ALT Alkaline Phosphatase Total Protein Albumin Globulin Albumin/Globulin Ratio Amylase Lipase Urine Color Urine Appearance Urine pH Ur Specific [place] Urine Protein Urine Glucose (UA) Urine Ketones Urine Occult Blood Urine Nitrate Urine Bilirubin Urine Urobilinogen Ur Leukocyte Esterase Urine RBC Urine WBC Ur Squamous Epith Cells Urine Bacteria Urine Mucus Ur Culture Indicated? Urine Opiates Screen None detected Ur Opiates Confirm Not Reportable Ur Oxycodone Screen None detected Urine Methadone Screen None detected Ur Methadone Confirm Not Reportable Ur Barbiturates Screen None detected Ur Barbiturate Confirm Not Reportable Ur Phencyclidine Scrn None detected Urine PCP Confirm Not Reportable Ur Amphetamines Screen None detected U Amphetamines Confirm Not Reportable U Benzodiazepines Scrn None detected U Benzodiazepine Confm Not Reportable Urine Cocaine Screen None detected Urine Cocaine Confirm Not Reportable U Cannabinoids Confirm Not Reportable U Marijuana (THC) Screen None detected 03/12/19 03/12/19 03/12/19 09:53 09:53 09:48 WBC 11.4 H RBC 5.26 Hgb 15.3 Hct 46.0 MCV 87.4 MCH 29.0 MCHC 33.2 RDW 13.0 Plt Count 237 MPV 7.8 Gran % 85.2 H Lymph % (Auto) 10.4 L Morris % (Auto) 4.1 Eos % (Auto) 0 Baso % (Auto) 0.3 Gran # 9.7 H Lymph # (Auto) 1.2 L [place] # (Auto) 0.5 Eos # (Auto) 0 Baso # (Auto) 0 VBG Lactic Acid Sodium 133 Potassium 3.9 Chloride 97 Carbon Dioxide 24 Anion Gap 12.0 BUN 7 Creatinine 0.9 GFR Calculation 106 Glucose 110 H Calcium 8.7 Total Bilirubin 0.4 AST 18 ALT 25 Alkaline Phosphatase 93 Total Protein 7.4 Albumin 4.7 Globulin 2.7 Albumin/Globulin Ratio 1.7 Amylase 98 Lipase 61 H Urine Color Straw Urine Appearance Clear Urine pH 5.0 Ur Specific [place] 1.000 Urine Protein Neg Urine Glucose (UA) Negative Urine Ketones Neg Urine Occult Blood Neg Urine Nitrate Neg Urine Bilirubin Neg Urine Urobilinogen Neg Ur Leukocyte Esterase Neg Urine RBC 0 Urine WBC < 1 Ur Squamous Epith Cells 0 Urine Bacteria 0 Urine Mucus Few Ur Culture Indicated? No Urine Opiates Screen Ur Opiates Confirm Ur Oxycodone Screen Urine Methadone Screen Ur Methadone Confirm Ur Barbiturates Screen Ur Barbiturate Confirm Ur Phencyclidine Scrn Urine PCP Confirm Ur Amphetamines Screen U Amphetamines Confirm U Benzodiazepines Scrn U Benzodiazepine Confm Urine Cocaine Screen Urine Cocaine Confirm U Cannabinoids Confirm U Marijuana (THC) Screen Medical - DS: A/P - Patient/Caregiver Discharge Instructions Activity: increase activity as tolerated Diet: Regular Diet Additional Instructions: Please resume your amitrptiline at 100mg Talk to your psychiatrist to see if any other changes need be made FOllow up with your pcp in 1 week Follow up with GI in 1 week, Kristi Melendrez Go to the ER if you have any worsening symptoms, fever, chest pain or any other acute concern. - Follow up Plan Follow up with: Jose Robin ARNP [Primary Care Provider] - Kristi Ramirez ARNP [Nurse Practitioner] - Disposition: Home, Self-Care Prognosis: Fair Rehab Potential: Fair I certify that the patient requires SNF services: No Overall status at discharge: patient is progressing back to baseline Medical - DS: Qual - VTE Deep Vein Thrombosis/Pulmonary Embolism Present on Admission: No
--- NOTE | 2019-03-13 14:01 | EGD Procedure Note ---
EGD Procedure Notes - Procedure Information Patient information: Note initiated : 03/13/19 at 1:57 pm Service Date: 03/12/19 Patient: Gume Hobson 38 y/o M admitted on 03/12/19 for N/V x 1 Hour. Pre-op diagnosis general: Hematemesis. Post-Op Diagnosis general: Erosive esophagitis secondary to vomiting. Epigastric pain. Procedure: Esophogogastroduodenoscopy Procedure Narrative: The procedure, alternatives and risks were discussed with the patient and the patient's questions were answered. With endoscopist-administered intravenous sedation, the Olympus video endoscope was introduced into the esophagus. The esophagus, stomach, and duodenum were examined sequentially. Mild erosive esophagitis was seen. This is likely secondary to vomiting. The gastric mucosa, antrum, pyloric ring and duodenum were otherwise normal. No bleeding nor any bleeding site was identified. Suspect a possible resolved small Melinda-Downs tear. Antral biopsy was taken for LARISSA test. The scope was withdrawn. Assessment: Erosive esophagitis secondary to vomiting. Epigastric pain. Recommend EUS to further evaluate the pancreas. In reviewing his history, he has a long history of intermittent attacks of nausea and vomiting, suggestive of cyclic vomiting syndrome. Apparently, his amitriptyline was recently discontinued. Amitriptyline is an effective therapy for both cyclic vomiting syndrome and chronic pancreatic pain. We will resume his amitriptyline and schedule EUS as an outpatient.
== END 2019-03-13 08:43 | disposition home or self-care (01) ==
LOC: MEDSUR 09:19 → ED 09:19 → MEDSUR 15:22
PROVIDERS: ADMIT Internal Medicine; ATTEND Internal Medicine

== ENCOUNTER 2020-06-15 16:10 | Inpatient (IN) ==
[2020-06-15] MEDS ORDERED: IOPAMIDOL 100 ML BOTTLE IV ONE (16:11)
[2020-06-15] MEDS ORDERED: PROMETHAZINE 25 MG/ML VIAL IV ONE ×2 (16:27→17:48)
[2020-06-15] MEDS ORDERED: 0.9 % SODIUM CHLORIDE 1,000 ML IV ONE (16:27)
--- NOTE | 2020-06-15 16:32 | Emergency Department Note ---
Nausea/Vomiting/Diarrhea HPI General Chief complaint: Nausea/Vomiting/Diarrhea Stated complaint: nausea/vomiting/diarrhea x 2 days Time Seen by Provider: 06/15/20 16:27 Source: patient Mode of arrival: ambulatory Limitations: no limitations History of Present Illness HPI Narrative: Narrative: Patient is a 39-year-old male that comes into the emergency department today with complaint of sharp and aching diffuse abdominal pain that started this morning. He reports having nausea, vomiting, and diarrhea that started last night. His diarrhea has been light brown to yellow in color. He has had 4-5 loose stools. He denies any fevers or chills. He has not had any chest pain, cough, or shortness of breath. He denies any dysuria or urinary frequency. He has not had any headache, weakness. He does report history of allergic reaction to Zofran, but has taken promethazine in the past. He thought that he would stay home and this would get better, but his made him come to the emergency department to be seen today as he kept having the nausea with vomiting. Patient does report a surgical history of cholecystectomy and appendectomy. Related Data Home Medications Medication Instructions Recorded Confirmed olanzapine [Zyprexa] 20 mg PO HS 09/29/17 06/15/20 omeprazole 40 mg PO ACB 09/29/17 06/15/20 lorazepam 2 mg PO BIDP PRN 03/12/19 06/15/20 divalproex [Depakote] 500 mg PO DAILY 05/18/20 06/15/20 tamsulosin [Flomax] 0.4 mg PO DAILY 05/18/20 06/15/20 Allergies Allergy/AdvReac Type Severity Reaction Status Date / Time cephalexin Allergy Severe Anaphylaxis Verified 06/15/20 16:13 doxycycline [From Vibramycin] Allergy Severe Anaphylaxis Verified 06/15/20 16:13 Penicillins Allergy Severe Anaphylaxis Verified 06/15/20 16:13 ciprofloxacin [From Cipro] Allergy Mild Swelling Verified 06/15/20 16:13 ketorolac [From Toradol] AdvReac Mild Anxiety Verified 06/15/20 16:13 ondansetron AdvReac Unknown Other Verified 06/15/20 16:13 [From Zofran (as hydrochloride)] prochlorperazine AdvReac Unknown Other Verified 06/15/20 16:13 [From Compazine] metoclopramide [From Reglan] AdvReac Other Verified 06/15/20 16:13 Review of Systems ROS ROS Narrative: Narrative: All systems ED: reviewed and negative except as stated. [facility] Narrative Patient History Narrative: Narrative: Medical/Surgical/Family History All Active Problems (Updated 06/15/20 @ 21:[address]) Nausea & vomiting (Acute) Abdominal pain (Acute) Laceration (Acute) Acute hyponatremia (Acute) Gastroenteritis (Acute) Obesity (BMI 30.0-34.9) (Chronic) Pancreatitis, chronic (Chronic) Schizoaffective disorder (Chronic) Restless leg syndrome (Chronic) Medical History (Updated 06/15/20 @ 21:[address]) Abdominal pain (Resolved) Cyclical vomiting (Resolved) Epigastric pain (Resolved) Gastritis (Resolved) Hematemesis with nausea (Resolved) History of acute pancreatitis (Resolved) Intractable nausea and vomiting (Resolved) Nausea & vomiting (Resolved) Obesity (BMI 30.0-34.9) (Chronic) Pancreatitis, chronic (Chronic) Pneumonia (Resolved) Restless leg syndrome (Chronic) Schizoaffective disorder (Chronic) Surgical History (Updated 03/13/19 @ 08:08 by Cornelius Dickinson MD) Status post appendectomy (Acute) Status post cholecystectomy (Acute) Family History (Updated 02/08/19 @ 16:50 by Loy Tinsley DO) Father Pancreatic cancer Mother Diabetes mellitus, type 2 Brother Diabetes mellitus, type 2 Social History Smoking Status: Smokeless tobacco Exam Narrative Narrative: Narrative: General Limitations: no limitations General appearance: alert and in no apparent distress Head Head: atraumatic and normocephalic Eye Eye: Present normal appearance, PERRL and EOMI; Absent scleral icterus and conjunctival injection ENT ENT: Present mucous membranes moist Neck Neck: Present trachea midline; Absent lymphadenopathy and thyromegaly Chest Chest: Present symmetric chest wall rise Respiratory Respiratory: Present normal lung sounds bilaterally; Absent respiratory distr ess, wheezes, stridor, accessory muscle use and prolonged expiratory phase Cardiovascular Cardiovascular: Present regular rate and normal rhythm; Absent systolic murmur and diastolic murmur Adbominal Abdominal: Present soft, tenderness (Mild diffuse abdominal tenderness in all quadrants) and hypoactive bowel sounds; Absent distention, guarding, rebound, rigidity, organomegaly, trauma and Clinton's sign Extremities Extremities: Present normal inspection, full ROM and normal capillary refill; Absent pedal edema, pretibial edema and calf tenderness Back Back: Present normal inspection; Absent CVA tenderness (R) and CVA tenderness (L) Neurological Neurological: Present alert and oriented X3 Psychiatric Psychiatric: Present normal affect and normal mood Skin Skin: Present warm, dry and normal color Course Reevaluation(s) Reevaluation #1: 1755 - Patient continues to have nausea diffuse abdominal pain. We will proceed with giving the patient a dose of IV Tylenol and another 12.5 mg of promethazine for the nausea and vomiting. His sodium level is 118, and have requested a consult with hospitalist to see about admission for hyponatremia. Patient does report drinking large quantities of water which he has been apparently drinking about 12 of the 16 ounce bottles of water a day. 1814- Spoke with hospitalist, Dr. Smith. Dr. Smith recommended CT abdomen pelvis for further evaluation of the patient's abdominal pain. I have ordered the CT abdomen and pelvis and will be in contact with Dr. Smith when the results are available. 1919 - Currently awaiting CT abdomen pelvis to be read by radiologist. Patient does continue to have abdominal pain despite IV Tylenol, Toradol, and will now p roceed with 0.5 mg of IV Dilaudid for pain management. Vital Signs Vital signs: Vital Signs Temperature 97.3 F 06/15/20 16:11 Pulse Rate 91 H 06/15/20 16:11 Respiratory Rate 20 06/15/20 16:11 Blood Pressure 113/79 06/15/20 16:11 Pulse Oximetry (%) 96 06/15/20 16:11 Temperature 97.3 F 06/15/20 20:58 Pulse Rate 62 06/15/20 20:58 Respiratory Rate 20 06/15/20 20:58 Blood Pressure 107/78 06/15/20 20:58 Pulse Oximetry (%) 94 06/15/20 20:58 [facility] Narrative Medical decision making narrative: Narrative: Abdominal CT does not show any acute abnormal findings. Abdominal pain is suspected of possible gastroenteritis. Patient does have hyponatremia with a sodium of 118. Patient will be admitted to [facility] today for the hyponatremia. Lab Data Result diagrams: 06/15/20 16:40 06/15/20 16:40 Labs: Lab Results 06/15/20 06/15/20 06/15/20 Range/Units 16:40 16:40 19:03 WBC 7.5 (4.50-11.00) K/mcL RBC 4.43 L (4.63-6.08) M/mcL Hgb 13.7 (13.7-17.5) g/dL Hct 36.7 L (40.1-51.0) % MCV 82.8 (80.0-100.0) fL MCH 30.9 (26.0-34.0) pg MCHC 37.3 H (31.0-36.0) g/dL RDW 11.5 (11.5-14.5) % Plt Count 196 (140-440) K/mcL MPV 8.7 (7.4-10.4) fL Gran % 69.3 (38.0-78.0) % Lymph % (Auto) 23.8 (15.5-49.0) % [place] % (Auto) 6.3 (1.0-12.0) % Eos % (Auto) 0.3 (0.0-7.0) % Baso % (Auto) 0.3 (0.0-2.0) % Gran # 5.21 (1.80-8.00) K/mcL Lymph # (Auto) 1.79 (1.50-4.80) K/mcL [place] # (Auto) 0.47 (0.10-0.90) K/mcL Eos # (Auto) 0.02 (0.00-0.70) K/mcL Baso # (Auto) 0.02 (0.00-0.30) K/mcL Sodium 118 L* (133-145) mmol/L Potassium 3.7 (3.3-5.1) mmol/L Chloride 84 L (96-108) mmol/L Carbon Dioxide 18 L (22-30) mmol/L Anion Gap 16.0 (8-16) BUN 6 (6-20) mg/dl Creatinine 0.8 (0.7-1.2) mg/dl GFR Calculation 111 Glucose 87 (70-105) mg/dL Calcium 8.3 L (8.6-10.4) mg/dl Total Bilirubin 0.8 (0.0-1.0) mg/dL AST 20 (0-37) U/l ALT 17 (0-40) U/l Alkaline Phosphatase 61 (39-117) U/L Total Protein 6.4 (5.9-8.4) gm/dL Albumin 4.2 (3.2-5.2) gm/dL Globulin 2.2 (2.2-3.7) gm/dL Albumin/Globulin Ratio 1.9 (1.0-2.3) Lipase 22 (7-60) U/L Urine Color Urine Appearance Urine pH (5.0-9.0) Ur Specific Henry (1.000-1.035) Urine Protein (NEG) mg/dL Urine Glucose (UA) (NEG) mg/dL Urine Ketones (NEG) mg/dL Urine Occult Blood (<0.03) mg/dL Urine Nitrate (NEG) Urine Bilirubin (NEG) mg/dL Urine Urobilinogen (NEG) mg/dL Ur Leukocyte Esterase (NEG) /uL Urine RBC (0-1) /hpf Urine WBC (0-4) /hpf Ur Squamous Epith Cells (0-4) /hpf Urine Bacteria (0) /hpf Urine Mucus (0) /hpf Ur Culture Indicated? Urine Opiates Screen None detected (NONDETECTED) Ur Oxycodone Screen None detected (NONDETECTED) Urine Methadone Screen None detected (NONDETECTED) Ur Barbiturates Screen None detected (NONDETECTED) Ur Phencyclidine Scrn None detected (NONDETECTED) Ur Amphetamines Screen None detected (NONDETECTED) U Benzodiazepines Scrn None detected (NONDETECTED) Urine Cocaine Screen None detected (NONDETECTED) U Marijuana (THC) Screen None detected (NONDETECTED) 06/15/20 Range/Units 19:03 WBC (4.50-11.00) K/mcL RBC (4.63-6.08) M/mcL Hgb (13.7-17.5) g/dL Hct (40.1-51.0) % MCV (80.0-100.0) fL MCH (26.0-34.0) pg MCHC (31.0-36.0) g/dL RDW (11.5-14.5) % Plt Count (140-440) K/mcL MPV (7.4-10.4) fL Gran % (38.0-78.0) % Lymph % (Auto) (15.5-49.0) % [place] % (Auto) (1.0-12.0) % Eos % (Auto) (0.0-7.0) % Baso % (Auto) (0.0-2.0) % Gran # (1.80-8.00) K/mcL Lymph # (Auto) (1.50-4.80) K/mcL [place] # (Auto) (0.10-0.90) K/mcL Eos # (Auto) (0.00-0.70) K/mcL Baso # (Auto) (0.00-0.30) K/mcL Sodium (133-145) mmol/L Potassium (3.3-5.1) mmol/L Chloride (96-108) mmol/L Carbon Dioxide (22-30) mmol/L Anion Gap (8-16) BUN (6-20) mg/dl Creatinine (0.7-1.2) mg/dl GFR Calculation Glucose (70-105) mg/dL Calcium (8.6-10.4) mg/dl Total Bilirubin (0.0-1.0) mg/dL AST (0-37) U/l ALT (0-40) U/l Alkaline Phosphatase (39-117) U/L Total Protein (5.9-8.4) gm/dL Albumin (3.2-5.2) gm/dL Globulin (2.2-3.7) gm/dL Albumin/Globulin Ratio (1.0-2.3) Lipase (7-60) U/L Urine Color Colorless Urine Appearance Clear Urine pH 7.0 (5.0-9.0) Ur Specific Henry 1.000 (1.000-1.035) Urine Protein Neg (NEG) mg/dL Urine Glucose (UA) Negative (NEG) mg/dL Urine Ketones Neg (NEG) mg/dL Urine Occult Blood Neg (<0.03) mg/dL Urine Nitrate Neg (NEG) Urine Bilirubin Neg (NEG) mg/dL Urine Urobilinogen Neg (NEG) mg/dL Ur Leukocyte Esterase Neg (NEG) /uL Urine RBC 0 (0-1) /hpf Urine WBC 0 (0-4) /hpf Ur Squamous Epith Cells 0 (0-4) /hpf Urine Bacteria 0 (0) /hpf Urine Mucus Few (0) /hpf Ur Culture Indicated? No Urine Opiates Screen (NONDETECTED) Ur Oxycodone Screen (NONDETECTED) Urine Methadone Screen (NONDETECTED) Ur Barbiturates Screen (NONDETECTED) Ur Phencyclidine Scrn (NONDETECTED) Ur Amphetamines Screen (NONDETECTED) U Benzodiazepines Scrn (NONDETECTED) Urine Cocaine Screen (NONDETECTED) U Marijuana (THC) Screen (NONDETECTED) Radiology Data Radiology results narrative: Ordering Physician: Arya Jacobsen Date of Service: 06/15/20 Procedure(s): CT abdomen pelvis w con Accession Number(s): [id number] CLINICAL INFORMATION: Abdominal pain COMPARISON: Abdomen and pelvic CT - 03/12/2019 TECHNIQUE: Following enteric contrast, 80 cc of Isovue-370 were injected intravenously, and 60 seconds later, 0.625 mm helical slices were obtained from the mid heart through the subtrochanteric regions. Following reconstruction, 2.5 mm sagittal, coronal and axial reformatted images were processed and reviewed at bone, lung and soft tissue windows. Five minutes later, 0.625 mm helical slices were obtained from the mid heart through the kidneys and viewed at soft tissue windows.The exam was performed using radiation dose optimization techniques including, but not limited to, automated exposure control, adjustment of the mA and/or kV according to patient size and use of iterative reconstruction technique. FINDINGS: Lung bases show no abnormality is no effusion. The visualized heart is normal. Abdominal images show the gallbladder is surgically absent. Intrahepatic and common bile ducts are normal: CBD is 6 mm. The liver, both kidneys, adrenal glands, spleen, pancreas and aorta are normal in size configuration and attenuation without focal lesion. There is no free air, free fluid or adenopathy. Pelvic images show moderate distention of urinary bladder. Prostate and seminal vesicles are normal. Stomach, small large bowel are unremarkable. The appendix is surgically absent. Bone windows show no osseous abnormality. IMPRESSION: No acute disease. Moderate distention of the urinary bladder. Interpreted and Authenticated by: Rylan Saldivar 06/15/20 Discharge Plan Patient/Caregiver Discharge Instructions Pt seen by APPRENTICE JOCKEY/PA only: Yes Clinical Impression: Acute hyponatremia, Gastroenteritis Patient Disposition: Xfer As Inpt ([facility]) Condition: Fair Discharge Date/Time: 06/15/20 20:58
[2020-06-15] MEDS ORDERED: HYOSCYAMINE SULFATE 0.5 MG/ML AMPUL IV ONE (17:16)
[2020-06-15 17:22] LABS: Basophils # (Auto) 0.02 K/mcL (0.00-0.30); Basophils % (Auto) 0.3 % (0.0-2.0); Eosinophils # (Auto) 0.02 K/mcL (0.00-0.70); Eosinophils % (Auto) 0.3 % (0.0-7.0); Granulocytes % (Auto) 69.3 % (38.0-78.0); Hematocrit 36.7 % (40.1-51.0); Hemoglobin 13.7 g/dL (13.7-17.5); Lymphocytes # (Auto) 1.79 K/mcL (1.50-4.80); Lymphocytes % (Auto) 23.8 % (15.5-49.0); Mean Cell Volume 82.8 fL (80.0-100.0); Mean Corpuscular HGB Conc 37.3 g/dL (31.0-36.0); Mean Platelet Volume 8.7 fL (7.4-10.4); Monocytes # (Auto) 0.47 K/mcL (0.10-0.90); Monocytes % (Auto) 6.3 % (1.0-12.0); Platelet Count 196 K/mcL (140-440); RBC 4.43 M/mcL (4.63-6.08); Red Cell Distribution Width 11.5 % (11.5-14.5); WBC 7.5 K/mcL (4.50-11.00)
[2020-06-15] MEDS ORDERED: HYOSCYAMINE SULFATE 0.125 MG TABLET SL ONE (17:32)
[2020-06-15 17:45] LABS: ALT/SGPT 17 U/l (0-40); AST/SGOT 20 U/l (0-37); Albumin 4.2 gm/dL (3.2-5.2); Albumin/Globulin Ratio 1.9 (1.0-2.3); Alkaline Phosphatase 61 U/L (39-117); Bilirubin,Total 0.8 mg/dL (0.0-1.0); Blood Urea Nitrogen 6 mg/dl (6-20); Calcium 8.3 mg/dl (8.6-10.4); Carbon Dioxide 18 mmol/L (22-30); Globulin 2.2 gm/dL (2.2-3.7); Glomerular Filtration Rate 111; Glucose 87 mg/dL (70-105)
[2020-06-15 17:46] LABS: Chloride 84 mmol/L (96-108)
[2020-06-15] MEDS ORDERED: ACETAMINOPHEN 1,000 MG/100 ML BOTTLE IV ONE (17:49)
--- NOTE | 2020-06-15 18:18 | Internal Med History&Physical ---
HPI History of Present Illness Patient information: Note initiated : 06/15/20 at 6:18 pm Service Date, if different from initiated Date: [] Patient: Gume Hobson a 39 y/o M admitted on for nausea/vomiting/diarrhea x 2 days. Chief Complaint: [] History of present illness: Mr. Hobson is a 39 year old M with history of schizoaffective disorder/anxiety and recurrent diarrhea who has been under evaluation by Dr. Estrada and underwent upper and lower endoscopy recently. Last couple days patient has had recurrent diarrhea with nausea and subsequently vomiting. Patient has associated dull pain 6 out of 10-10 out of 10 made worse with emesis. He denies sick contacts or changes in diet or medications. He denies weight loss/bloody stool/fever chills. Initial work-up in the ER was consistent with volume depletion/hyponatremia at 118. Patient was started on crystalloid/supportive management on antiemetics. Hospital service was consulted. At the time of evaluation patient is accompanied with his Kristi. He was able to endorse history as above and answers to most questions. Review of systems 10 point review system was performed and is negative except for ones discussed above [facility] Medical History (Updated 06/15/20 @ 21:[address]) Abdominal pain (Resolved) Cyclical vomiting (Resolved) Epigastric pain (Resolved) Gastritis (Resolved) Hematemesis with nausea (Resolved) History of acute pancreatitis (Resolved) Intractable nausea and vomiting (Resolved) Nausea & vomiting (Resolved) Obesity (BMI 30.0-34.9) (Chronic) Pancreatitis, chronic (Chronic) Pneumonia (Resolved) Restless leg syndrome (Chronic) Schizoaffective disorder (Chronic) Surgical History (Updated 03/13/19 @ 08:08 by Cornelius Dickinson MD) Status post appendectomy (Acute) Status post cholecystectomy (Acute) Family History (Updated 02/08/19 @ 16:50 by Loy Tinsley DO) Father Pancreatic cancer Mother Diabetes mellitus, type 2 Brother Diabetes mellitus, type 2 Social History smoking status: Smokeless tobacco MEDS/ALLERGIES Home Medications and Allergies Home Medications Medication Instructions Recorded Confirmed Type olanzapine [Zyprexa] 20 mg PO HS 09/29/17 06/15/20 History omeprazole 40 mg PO ACB 09/29/17 06/15/20 History lorazepam 1 mg PO TIDP PRN 03/12/19 06/15/20 History divalproex [Depakote] 500 mg PO QHS 05/18/20 06/15/20 History tamsulosin [Flomax] 0.4 mg PO DAILY 05/18/20 06/15/20 History clonidine HCl 0.1 mg PO BIDP PRN 06/15/20 06/15/20 History promethazine 50 mg PO QHS 06/15/20 06/15/20 History trihexyphenidyl 2 mg PO QHS 06/15/20 06/15/20 History Allergies Allergy/AdvReac Type Severity Reaction Status Date / Time cephalexin Allergy Severe Anaphylaxis Verified 06/15/20 16:13 doxycycline [From Vibramycin] Allergy Severe Anaphylaxis Verified 06/15/20 16:13 Penicillins Allergy Severe Anaphylaxis Verified 06/15/20 16:13 ciprofloxacin [From Cipro] Allergy Intermediate Swelling Verified 06/16/20 07:11 ketorolac [From Toradol] AdvReac Mild Anxiety Verified 06/15/20 16:13 metoclopramide [From Reglan] AdvReac Mild Other Verified 06/16/20 07:11 ondansetron AdvReac Mild Other Verified 06/16/20 07:11 [From Zofran (as hydrochloride)] prochlorperazine AdvReac Mild Other Verified 06/16/20 07:11 [From Compazine] EXAM Constitutional Vitals: Temp Pulse Resp BP Pulse Ox 97.3 F 69 20 123/92 95 06/15/20 16:11 06/15/20 17:31 06/15/20 16:11 06/15/20 18:01 06/15/20 17:31 Obese, alert Head normocephalic Oral cavity moist No ear nose discharge Eye movement symmetrical Neck supple no lymphadenopathy S1-S2 regular Nonlabored breathing Nondistended but tender abdomen without guarding Lower extremity no cyanosis clubbing or joint swelling Skin no suspicious lesion Psych anxious but alert cooperative Neuro normal higher function DATA Data Completed and Pending Labs on day of discharge: Labs from last 24 hours 06/15/20 06/15/20 16:40 16:40 WBC 7.5 RBC 4.43 L Hgb 13.7 Hct 36.7 L MCV 82.8 MCH 30.9 MCHC 37.3 H RDW 11.5 Plt Count 196 MPV 8.7 Gran % 69.3 Lymph % (Auto) 23.8 [place] % (Auto) 6.3 Eos % (Auto) 0.3 Baso % (Auto) 0.3 Gran # 5.21 Lymph # (Auto) 1.79 [place] # (Auto) 0.47 Eos # (Auto) 0.02 Baso # (Auto) 0.02 Sodium 118 L* Potassium 3.7 Chloride 84 L Carbon Dioxide 18 L Anion Gap 16.0 BUN 6 Creatinine 0.8 GFR Calculation 111 Glucose 87 Calcium 8.3 L Total Bilirubin 0.8 AST 20 ALT 17 Alkaline Phosphatase 61 Total Protein 6.4 Albumin 4.2 Globulin 2.2 Albumin/Globulin Ratio 1.9 Lipase 22 A/P Narrative A/P Narrative: * Symptomatic hyponatremia. Likely hypovolemic from diarrhea/emesis and solute loss. Check urine and serum osmolarity/every 4 sodium checks. Start saline at 50. * Abdominal pain diarrhea-supportive management * Nausea vomiting continue supportive management antiemetics * Schizoaffective disorder continue olanzapine/Depakote * BPH continue Flomax * GERD continue PPI * Anxiety disorder on Lorazepam * Full code * Prophylax Heparin Plan * Inpatient admission * Sodium checks * Urine and serum osmolarity * Pre-existing medical condition management as above * Nutrition support/PT OT * Discharge planning Time Spent With Patient Time: Total time spent is greater than 50% in coordination of care (as documented) at patient's floor/unit and/or counseling patient:
[2020-06-15] MEDS ORDERED: HYDROmorphone 0.5 MG/0.5 ML SYRINGE IV ONE ×2 (19:18→20:36)
--- NOTE | 2020-06-15 19:42 | Cat Scan Report ---
CLINICAL INFORMATION: Abdominal pain COMPARISON: Abdomen and pelvic CT - 03/12/2019 TECHNIQUE: Following enteric contrast, 80 cc of Isovue-370 were injected intravenously, and 60 seconds later, 0.625 mm helical slices were obtained from the mid heart through the subtrochanteric regions. Following reconstruction, 2.5 mm sagittal, coronal and axial reformatted images were processed and reviewed at bone, lung and soft tissue windows. Five minutes later, 0.625 mm helical slices were obtained from the mid heart through the kidneys and viewed at soft tissue windows.The exam was performed using radiation dose optimization techniques including, but not limited to, automated exposure control, adjustment of the mA and/or kV according to patient size and use of iterative reconstruction technique. FINDINGS: Lung bases show no abnormality is no effusion. The visualized heart is normal. Abdominal images show the gallbladder is surgically absent. Intrahepatic and common bile ducts are normal: CBD is 6 mm. The liver, both kidneys, adrenal glands, spleen, pancreas and aorta are normal in size configuration and attenuation without focal lesion. There is no free air, free fluid or adenopathy. Pelvic images show moderate distention of urinary bladder. Prostate and seminal vesicles are normal. Stomach, small large bowel are unremarkable. The appendix is surgically absent. Bone windows show no osseous abnormality. IMPRESSION: No acute disease. Moderate distention of the urinary bladder. Interpreted and Authenticated by: Rylan Saldivar 06/15/20
[2020-06-15 20:00] LABS: Amphetamine Screen,Urine NONE DETECTED (NONDETECTED); Barbiturate Screen,Urine NONE DETECTED (NONDETECTED); Benzodiazepines Screen,Urine NONE DETECTED (NONDETECTED); Cannabinoid Screen,Urine NONE DETECTED (NONDETECTED); Cocaine Screen,Urine NONE DETECTED (NONDETECTED); Opiate Screen,Urine NONE DETECTED (NONDETECTED); Oxycodone, Urine Screen NONE DETECTED (NONDETECTED); Phencyclidine Screen,Urine NONE DETECTED (NONDETECTED)
[2020-06-15 20:55] LABS: Appearance,Urine CLEAR; Bacteria,Urine 0 /hpf (0); Bilirubin,Urine NEG (NEG); Color,Urine COLORLESS; Culture Indicated,Urine NO; Glucose,Urine (UA) NEGATIVE (NEG); Ketones,Urine NEG (NEG); Leukocyte Esterase,Urine NEG /uL (NEG); Mucus,Urine FEW /hpf (0); Nitrate,Urine NEG (NEG); Protein,Urine NEG (NEG); Urine Blood NEG mg/dL (<0.03); Urine RBC 0 /hpf (0-1); Urine Squamous Epithelial Cell 0 /hpf (0-4); Urine WBC 0 /hpf (0-4); Urobilinogen,Urine NEG (NEG)
[2020-06-15] MEDS ORDERED: POLYETHYLENE GLYCOL 3350 17 GM PACKET PO PRN (20:55)
[2020-06-15] MEDS ORDERED: ONDANSETRON 4 MG ODT TABLET SL PRN (20:55)
[2020-06-15] MEDS ORDERED: POTASSIUM CHLORIDE 20 MEQ PACKET PO PRN (20:55)
[2020-06-15] MEDS ORDERED: ACETAMINOPHEN 650 MG/65 ML BOTTLE IV PRN (20:55)
[2020-06-15] MEDS ORDERED: MELATONIN 3 MG TABLET PO PRN (20:55)
[2020-06-15] MEDS ORDERED: MAGNESIUM SULFATE 2 GM/50 ML BAG IV PRN (20:55)
[2020-06-15] MEDS ORDERED: ACETAMINOPHEN 325 MG TABLET PO PRN (20:55)
[2020-06-15] MEDS ORDERED: 0.9 % SODIUM CHLORIDE 1,000 ML IV SCH (20:55)
[2020-06-15] MEDS ORDERED: ONDANSETRON 4 MG/2 ML VIAL IV PRN (20:55)
[2020-06-15] MEDS ORDERED: BISACODYL 10 MG SUPP.RECT PR PRN (20:55)
[2020-06-15] MEDS ORDERED: LORAZEPAM 2 MG PO PRN (20:55)
[2020-06-15] MEDS ORDERED: SENNOSIDES/DOCUSATE SODIUM 1 TAB TABLET PO SCH (21:00)
[2020-06-15] MEDS ORDERED: OLANZAPINE 20 MG PO SCH (21:00)
[2020-06-15] MEDS: PROMETHAZINE 25 MG/ML VIAL IV PRN (21:41)
[2020-06-15] MEDS: DOCUSATE SODIUM 100 MG CAPSULE PO SCH (21:46)
[2020-06-15] MEDS: 0.9 % SODIUM CHLORIDE 10 ML SYRINGE IV SCH (21:46)
[2020-06-15] MEDS: OLANZapine 5 MG TABLET PO SCH (21:50)
[2020-06-15] MEDS: HYDROmorphone 0.5 MG/0.5 ML SYRINGE IV PRN (21:51)
[2020-06-15] MEDS ORDERED: LOPERAMIDE 2 MG CAPSULE PO PRN (21:53)
[2020-06-16] MEDS: HYDROmorphone 0.5 MG/0.5 ML SYRINGE IV PRN ×7 (00:20→17:44)
[2020-06-16] MEDS: PROMETHAZINE 25 MG/ML VIAL IV PRN ×4 (04:34→20:13)
[2020-06-16] MEDS: 0.9 % SODIUM CHLORIDE 10 ML SYRINGE IV SCH ×3 (04:49→21:23)
[2020-06-16 05:09] LABS: Bilirubin,Direct < 0.2 mg/dL (0.0-0.3); Chloride 103 mmol/L (96-108); Hemoglobin 15.3 g/dL (13.7-17.5); Mean Cell Volume 83.7 fL (80.0-100.0); Mean Corpuscular HGB Conc 36.4 g/dL (31.0-36.0); Mean Platelet Volume 9.1 fL (7.4-10.4); Platelet Count 207 K/mcL (140-440); RBC 5.02 M/mcL (4.63-6.08); WBC 4.8 K/mcL (4.50-11.00)
[2020-06-16 05:10] LABS: ALT/SGPT 17 U/l (0-40); AST/SGOT 18 U/l (0-37); Albumin 4.2 gm/dL (3.2-5.2); Albumin/Globulin Ratio 1.9 (1.0-2.3); Alkaline Phosphatase 62 U/L (39-117); Bilirubin,Total 0.5 mg/dL (0.0-1.0); Blood Urea Nitrogen 6 mg/dl (6-20); Calcium 8.6 mg/dl (8.6-10.4); Carbon Dioxide 19 mmol/L (22-30); Globulin 2.2 gm/dL (2.2-3.7); Glomerular Filtration Rate 111; Glucose 91 mg/dL (70-105); Lactate Dehydrogenase 194 U/L (94-250); Phosphorous 4.2 mg/dL (2.7-4.5); Triglycerides 90 mg/dl (<150); Uric Acid 4.6 mg/dL (2.5-8.0)
[2020-06-16 06:11] LABS: Eosinophils % (Manual) 2 % (0-7); Lymphocytes % 48 % (15-49); Monocytes % (Manual) 8 % (1-12); Platelet Estimate NORMAL (NORMAL); RBC Morphology NORMAL (NORMAL); Segmented Neutrophils % 42 % (38-78)
[2020-06-16] MEDS: OMEPRAZOLE 20 MG CAPSULE PO SCH (07:46)
[2020-06-16] MEDS: DOCUSATE SODIUM 100 MG CAPSULE PO SCH (09:39)
[2020-06-16] MEDS: MULTIVIT,THER IRON,CA,FA & MIN 1 TABLET PO SCH (09:41)
[2020-06-16] MEDS: DIVALPROEX SODIUM 250 MG TABLET PO SCH (09:42)
[2020-06-16] MEDS: TAMSULOSIN 0.4 MG CAPSULE PO SCH (09:42)
[2020-06-16] MEDS: LORazepam 1 MG TABLET PO PRN (16:26)
[2020-06-16] MEDS ORDERED: cloNIDine HCL 0.1 MG TABLET PO PRN (19:00)
[2020-06-16] MEDS ORDERED: HYDROmorphone 0.5 MG/0.5 ML SYRINGE IV PRN (19:21)
[2020-06-16] MEDS: HYDROcodone/APAP 5/325MG TABLET PO PRN (20:12)
[2020-06-16] MEDS: OLANZapine 5 MG TABLET PO SCH (21:22)
--- NOTE | 2020-06-16 21:44 | Internal Med Progress Note ---
SUBJECTIVE Subjective Patient information: Note initiated : 06/16/20 at 9:43 pm Service Date, if different from initiated Date: [] Patient: Gume Hobson a 39 y/o M admitted on 06/15/20 for nausea/vo miting/diarrhea x 2 days. Chief Complaint: History of present illness: Mr. Hobson is a 39 year old M with history of schizoaffective disorder/anxiety and recurrent diarrhea who has been under evalu ation by Dr. Estrada and underwent upper and lower endoscopy recently. Last couple days patient has had recurrent diarrhea with nausea and subsequently vomiting. Patient has associated dull pain 6 out of 10-10 out of 10 made worse with emesis. He denies sick contacts or changes in diet or medications. He denies weight loss/bloody stool/fever chills. Initial work-up in the ER was consistent with volume depletion/hyponatremia at 118. Patient was started on crystalloid/supportive management on antiemetics. Hospital service was consulted. At the time of evaluation patient is accompanied with his Kristi. He was able to endorse history as above and answers to most questions. 8/-patient doing well. No overnight events. Nausea vomiting improved. Electrolytes improving. Complains of present abdominal pain however disproportionate to clinical finding. Nursing staff expressed about concerns for drug-seeking behavior following a call from who also expressed concern about patient's history of IV drug use, subsequently IV narcotics switched to oral. Patient will likely discharge in 24 hours pending clinical improvement. Constitutional Vitals: Vital Signs Temp Pulse Resp BP Pulse Ox 97.9 F 71 16 116/84 96 06/16/20 20:11 06/16/20 14:00 06/16/20 20:11 06/16/20 20:11 06/16/20 20:11 Period Temp Pulse Resp BP Sys/Flynn Pulse Ox Last 24 Hr 97.5 F-98.8 F 58-80 12-20 82-169/52-92 96-100 Intake and Output 06/16/20 06/16/20 06/16/20 05:59 13:59 21:59 Intake Total 778 2000 1560 Output Total 2026 464 0855 Balance -1122 1375 -1465 Weight 86.319 kg Patient Weight 06/17/20 05:59 Weight 86.319 kg alert oriented Nonlabored breathing Minimal tender abdomen no anxiety Intake & Output: Intake & Output 06/16/20 06/16/20 06/16/20 05:59 13:59 21:59 Intake Total 778 1999 156 Output Total 5496 953 5343 Balance -1122 1375 -1465 Weight 86.319 kg Intake: IV 358 Sodium Chloride 0.9% 1,000 ml @ 358 50 mls/hr IV .Q20H [facility] Rx#: [id number] Oral 420 1999 156 Output: Void Amount [id number] Other: Meal Lunch Percent of Meal Consumed 100% Feeding Ability Independent Urine Appearance Clear Clear Urine Color Pale Straw Urine Odor Normal Strong OBJ DATA Labs CBC & Chem 7: 06/17/20 05:00 06/17/20 05:00 Labs: Abnormal Lab Results 06/16/20 06/16/20 06/16/20 03:40 03:40 00:23 RBC Hct MCHC 36.4 H Sodium 131 L Chloride Carbon Dioxide 19 L Calcium Magnesium 2.8 H 06/15/20 06/15/20 16:40 16:40 RBC 4.43 L Hct 36.7 L MCHC 37.3 H Sodium 118 L* Chloride 84 L Carbon Dioxide 18 L Calcium 8.3 L Magnesium Meds: Medications Acetaminophen (Tylenol) 650 mg PO Q4-6HP PRN; Protocol PRN Reason: Per Pain Protocol/Fever > 101 Hydrocodone Bitart/Acetaminophen (Webster 5/325mg) 1 tab PO Q4-6HP PRN; Protocol PRN Reason: Per Pain Protocol Last Admin: 06/16/20 20:12 Dose: 1 tab Documented by: Bisacodyl (Dulcolax) 10 mg MS Q2-3DAYS PRN PRN Reason: Constipation Clonidine HCl (Catapres) 0.1 mg PO BIDP PRN PRN Reason: Agitation Last Admin: 06/16/20 21:23 Dose: 0.1 mg Documented by: Divalproex Sodium (Depakote Delayed Release) 500 mg PO DAILY [facility] Last Admin: 06/16/20 09:42 Dose: 500 mg Documented by: Hydromorphone HCl (Dilaudid) 0.5 mg IV Q8HP PRN; Protocol PRN Reason: Per Pain Protocol Acetaminophen (Ofirmev) 650 mg in 65 mls @ 130 mls/hr IV Q6HP PRN; Protocol PRN Reason: Per Pain Protocol/Fever > 101 Magnesium Sulfate (Magnesium Sulfate) 2 gm in 50 mls @ 50 mls/hr IV UD PRN PRN Reason: MG = or < 1.7 Iron Carb/Multivit/Delphi/Folic Acid (Multivitamin W/Minerals) 1 tab PO DAILY [facility] Last Admin: 06/16/20 09:41 Dose: 1 tab Documented by: Loperamide HCl (Imodium) 2 mg PO PRN PRN PRN Reason: Diarrhea Lorazepam (Ativan) 2 mg PO BIDP PRN PRN Reason: Anxiety Last Admin: 06/16/20 16:26 Dose: 2 mg Documented by: Melatonin (Melatonin 3mg Tablet) 3 mg PO HSP PRN PRN Reason: Insomnia Olanzapine (Zyprexa) 20 mg PO HS [facility] Last Admin: 06/16/20 21:22 Dose: 20 mg Documented by: Omeprazole (Prilosec) 40 mg PO ACB [facility] Last Admin: 06/16/20 07:46 Dose: 40 mg Documented by: Ondansetron HCl (Zofran Odt) 4 mg SL Q4-6HP PRN; Protocol PRN Reason: Nausea And Vomiting Ondansetron HCl (Zofran) 4 mg IV Q4-6HP PRN; Protocol PRN Reason: Nausea And Vomiting Polyethylene Glycol (Miralax) 17 gm PO DAILYP PRN PRN Reason: Constipation Potassium Chloride (Klor-Con) 40 meq PO DAILYP PRN PRN Reason: K+ < 3.5 Promethazine HCl (Phenergan) 6.25 mg IV Q4-6HP PRN; Protocol PRN Reason: Nausea And Vomiting Last Admin: 06/16/20 20:13 Dose: 6.25 mg Documented by: Sodium Chloride (Saline Flush) 10 ml IV Q8 [facility] Last Admin: 06/16/20 21:23 Dose: 10 ml Documented by: Tamsulosin HCl (Flomax) 0.4 mg PO DAILY [facility] Last Admin: 06/16/20 09:42 Dose: 0.4 mg Documented by: A/P Narrative A/P Narrative: * Symptomatic hyponatremia. improved, sodium to 130 * Abdominal pain diarrhea-improved with supportive management * Nausea vomiting continue supportive management antiemetics * Schizoaffective disorder continue olanzapine/Depakote * BPH continue Flomax * GERD continue PPI * Anxiety disorder on Lorazepam * Full code * Prophylax Heparin Plan * DC IV opioids * Pre-existing medical condition management as above * Nutrition support/PT OT * Discharge planning likely in 24 hours Time Spent With Patient Time: Total time spent is greater than 50% in coordination of care (as documented) at patient's floor/unit and/or counseling patient:
[2020-06-17] MEDS: 0.9 % SODIUM CHLORIDE 10 ML SYRINGE IV SCH (05:02)
[2020-06-17] MEDS: PROMETHAZINE 25 MG/ML VIAL IV PRN (05:20)
[2020-06-17 06:24] LABS: Hematocrit 42.2 % (40.1-51.0); Hemoglobin 15.1 g/dL (13.7-17.5); Mean Cell Volume 84.4 fL (80.0-100.0); Mean Corpuscular HGB Conc 35.8 g/dL (31.0-36.0); Mean Platelet Volume 9.1 fL (7.4-10.4); Platelet Count 239 K/mcL (140-440); Red Cell Distribution Width 12.2 % (11.5-14.5); WBC 6.3 K/mcL (4.50-11.00)
[2020-06-17 06:44] LABS: ALT/SGPT 18 U/l (0-40); AST/SGOT 15 U/l (0-37); Albumin 4.1 gm/dL (3.2-5.2); Albumin/Globulin Ratio 1.9 (1.0-2.3); Alkaline Phosphatase 64 U/L (39-117); Bilirubin,Direct < 0.2 mg/dL (0.0-0.3); Bilirubin,Total 0.2 mg/dL (0.0-1.0); Blood Urea Nitrogen 5 mg/dl (6-20); Calcium 8.8 mg/dl (8.6-10.4); Carbon Dioxide 26 mmol/L (22-30); Chloride 97 mmol/L (96-108); Globulin 2.2 gm/dL (2.2-3.7); Glomerular Filtration Rate 93; Glucose 99 mg/dL (70-105); Lactate Dehydrogenase 151 U/L (94-250); Phosphorous 3.8 mg/dL (2.7-4.5); Triglycerides 151 mg/dl (<150); Uric Acid 4.6 mg/dL (2.5-8.0)
[2020-06-17] MEDS: OMEPRAZOLE 20 MG CAPSULE PO SCH (07:10)
[2020-06-17 07:13] LABS: Eosinophils % (Manual) 4 % (0-7); Lymphocytes % 52 % (15-49); Monocytes % (Manual) 7 % (1-12); Platelet Estimate NORMAL (NORMAL); RBC Morphology NORMAL (NORMAL); Reactive Lymphocytes 3 % (0-2); Segmented Neutrophils % 34 % (38-78)
[2020-06-17] MEDS: TAMSULOSIN 0.4 MG CAPSULE PO SCH (08:20)
[2020-06-17] MEDS: DIVALPROEX SODIUM 250 MG TABLET PO SCH (08:20)
[2020-06-17] MEDS: MULTIVIT,THER IRON,CA,FA & MIN 1 TABLET PO SCH (08:20)
[2020-06-17] MEDS: HYDROcodone/APAP 5/325MG TABLET PO PRN (09:16)
[2020-06-17] MEDS: LORazepam 1 MG TABLET PO PRN (09:16)
--- NOTE | 2020-06-17 09:31 | Discharge Summary ---
Discharge Provider Provider Patient information: Note initiated : 06/17/20 at 9:29 am Service Date, if different from initiated Date: [] Patient: Gume Hobson a 39 y/o M admitted on 06/15/20 for nausea/vomiting/diarrhea x 2 days. Discharge diagnosis * Symptomatic hyponatremia. Secondary to solute loss from nausea, diarrhea. Sodium improved to 135. Clinically resolved. * Abdominal pain secondary to nausea recurrent emesis-improved * Drug-seeking behavior/history of IVDU-DC IV opioids. * Schizoaffective disorder continue olanzapine/Depakote * BPH continue Flomax * GERD continue PPI * Anxiety disorder on Lorazepam Brief hospital course History of present illness: Mr. Hobson is a 39 year old M with history of schizoaffective disorder/anxiety and recurrent diarrhea who has been under evaluation by Dr. Estrada and underwent upper and lower endoscopy recently. Last couple days patient has had recurrent diarrhea with nausea and subsequently vomiting. Patient has associated dull pain 6 out of 10-10 out of 10 made worse with emesis. He denies sick contacts or changes in diet or medications. He denies weight loss/bloody stool/fever chills. Initial work-up in the ER was consistent with volume depletion/hyponatremia at 118. Patient was started on crystalloid/supportive management on antiemetics. Hospital service was consulted. At the time of evaluation patient is accompanied with his Kristi. He was able to endorse history as above and answers to most questions. 8/-patient doing well. No overnight events. Nausea vomiting improved. Electrolytes improving. Complains of present abdominal pain however dispro portionate to clinical finding. Nursing staff expressed about concerns for drug-seeking behavior following a call from who also expressed concern about patient's history of IV drug use, subsequently IV narcotics switched to oral. Patient will likely discharge in 24 hours pending clinical improvement. 8/-patient discharging home with advised to follow-up with primary care physician, nausea vomiting clinically resolved. Electrolytes within normal limits. Feels at baseline. Requesting discharge. Date of admission: 06/15/20 20:54 Discharge date: 06/17/20 Primary care physician: Jose Robin Consults: 06/15/20 Consult to Physician [CONS] Stat Comment: Consulting Provider: Kem Larios Reason For Exam: Physician to Consult Discharge Meds Discharge Medications Home Medications olanzapine [Zyprexa] 20 mg PO HS 09/29/17 [History Confirmed 06/15/20 Last Taken 06/14/20 22:00] omeprazole 40 mg PO ACB 09/29/17 [History Confirmed 06/15/20 Last Taken 06/15/20 09:00] lorazepam 1 mg PO TIDP PRN 03/12/19 [History Confirmed 06/15/20 Last Taken 06/15/20 09:00] divalproex [Depakote] 500 mg PO QHS 05/18/20 [History Confirmed 06/15/20 Last Taken 06/14/20 22:00] tamsulosin [Flomax] 0.4 mg PO DAILY 05/18/20 [History Confirmed 06/15/20 Last Taken 06/15/20 09:00] clonidine HCl 0.1 mg PO BIDP PRN 06/15/20 [History Confirmed 06/15/20 Last Taken 06/15/20 14:00] promethazine 50 mg PO QHS 06/15/20 [History Confirmed 06/15/20 Last Taken 06/15/20 15:00] trihexyphenidyl 2 mg PO QHS 06/15/20 [History Confirmed 06/15/20 Last Taken 06/14/20 22:00] COURSE Hospital Course Hospital course: . Discharge diagnosis: . Time Spent with Patient Time attestation: Total time spent providing and/or coordinating discharge services: EXAM Constitutional Vitals: Temp Pulse Resp BP Pulse Ox 97.1 F 65 20 121/59 96 06/17/20 08:57 06/17/20 07:53 06/17/20 08:57 06/17/20 08:57 06/17/20 08:57 Discharge Data Data Completed and Pending Labs on day of discharge: Labs from last 24 hours 06/17/20 06/17/20 06/16/20 05:00 05:00 20:05 WBC 6.3 RBC 5.00 Hgb 15.1 Hct 42.2 MCV 84.4 MCH 30.2 MCHC 35.8 RDW 12.2 Plt Count 239 MPV 9.1 Total Counted 100 Seg Neutrophils % 34 L Band Neutrophils % Not Reportable Lymphocytes % 52 H Monocytes % (Manual) 7 Eosinophils % (Manual) 4 Reactive Lymphocytes 3 H Platelet Estimate Normal RBC Morphology Normal Sodium 135 133 Potassium 4.0 Chloride 97 Carbon Dioxide 26 Anion Gap 12.0 BUN 5 L Creatinine 1.0 GFR Calculation 93 Glucose 99 Uric Acid 4.6 Calcium 8.8 Phosphorus 3.8 Magnesium 2.3 Total Bilirubin 0.2 Direct Bilirubin < 0.2 GGT 25 AST 15 ALT 18 Alkaline Phosphatase 64 Lactate Dehydrogenase 151 Total Protein 6.3 Albumin 4.1 Globulin 2.2 Albumin/Globulin Ratio 1.9 Triglycerides 151 H 06/16/20 06/16/20 06/16/20 16:28 12:24 08:32 WBC RBC Hgb Hct MCV MCH MCHC RDW Plt Count MPV Total Counted Seg Neutrophils % Band Neutrophils % Lymphocytes % Monocytes % (Manual) Eosinophils % (Manual) Reactive Lymphocytes Platelet Estimate RBC Morphology Sodium 136 134 136 Potassium Chloride Carbon Dioxide Anion Gap BUN Creatinine GFR Calculation Glucose Uric Acid Calcium Phosphorus Magnesium Total Bilirubin Direct Bilirubin GGT AST ALT Alkaline Phosphatase Lactate Dehydrogenase Total Protein Albumin Globulin Albumin/Globulin Ratio Triglycerides Discharge Plan Patient/Caregiver Discharge Instructions Activity: increase activity as tolerated Diet: Regular Diet Instructions: Hyponatremia (GEN), Acute Diarrhea (GEN) Activity Restrictions/Additional Instructions: This discharge packet is provided to you to help keep you informed about your care. We want to ensure you get everything you need when you go home. You will also be receiving a call from us in a few days to follow up with you and see how you are doing since your discharge. This gives us a chance to listen to any concerns you maybe experiencing since you were discharged or any additional ne eds you may have, as well as providing us feedback on your care experience. We strive to always provide excellent care and thank you for your feedback and for choosing [facility]. Prescriptions: Continued omeprazole 20 MG capsule,delayed release(DR/EC) 40 mg PO ACB RF: 0 olanzapine [Zyprexa] 20 MG tablet 20 mg PO HS RF: 0 lorazepam 2 MG tablet 1 mg PO TIDP PRN (Reason: Anxiety) RF: 0 divalproex [Depakote] 500 mg Tablet,Delayed Release (Dr/Ec) 500 mg PO QHS RF: 0 tamsulosin [Flomax] 0.4 mg Capsule 0.4 mg PO DAILY RF: 0 clonidine HCl 0.1 mg Tablet 0.1 mg PO BIDP PRN (Reason: Agitation) RF: 0 promethazine 50 mg Tablet 50 mg PO QHS RF: 0 trihexyphenidyl 2 mg Tablet 2 mg PO QHS RF: 0 Follow Up Plan Follow up with: Jose Robin ARNP [Primary Care Provider] - Patient Disposition: Home, Self-Care Prognosis: Fair Rehab Potential: Fair I certify that the patient requires SNF services: No Discharge Orders: Discharge Order (Routine); Ordered 06/17/20 Ordered By: Kem Larios
== END 2020-06-17 11:41 | disposition home or self-care (01) | DRG 641 ==
LOC: ED 16:10 → ICU 20:54
PROVIDERS: ADMIT Internal Medicine; ATTEND Internal Medicine

== ENCOUNTER 2020-07-04 19:11 | Inpatient (IN) ==
[2020-07-04] MEDS ORDERED: ONDANSETRON 4 MG/2 ML VIAL IV ONE (19:42)
[2020-07-04] MEDS ORDERED: HYDROmorphone 0.5 MG/0.5 ML SYRINGE IV ONE ×2 (19:42→21:50)
[2020-07-04] MEDS ORDERED: 0.9 % SODIUM CHLORIDE 2,000 ML IV ONE (19:42)
[2020-07-04] MEDS ORDERED: diphenhydrAMINE 50 MG/ML VIAL IV ONE (20:08)
--- NOTE | 2020-07-04 21:38 | Emergency Department Note ---
Nausea/Vomiting/Diarrhea HPI General Chief complaint: Nausea/Vomiting/Diarrhea Stated complaint: n/v/d Time Seen by Provider: 07/04/20 19:42 Source: patient Mode of arrival: ambulatory Limitations: no limitations History of Present Illness HPI Narrative: Narrative: 39-year-old male comes in complaining of nausea vom iting diarrhea and belly pain. No fever or shortness of breath however. He was recently admitted for hyponatremia after a similar episode 2 weeks ago. Discharged on 06/17/2020. I reviewed those notes from the hospitalist and emergency room provider. Today he states that he cannot keep any food down. He takes oral Phenergan at home without relief. He reports difficulty with Zofran or Reglan or Compazine and less he takes some Benadryl with Patient is notes a recent endoscopy several months ago with Dr. Coulter but I do not have a record of that Related Data Home Medications Medication Instructions Recorded Confirmed olanzapine [Zyprexa] 20 mg PO HS 09/29/17 06/15/20 omeprazole 40 mg PO ACB 09/29/17 06/15/20 lorazepam 1 mg PO TIDP PRN 03/12/19 06/15/20 divalproex [Depakote] 500 mg PO QHS 05/18/20 06/15/20 tamsulosin [Flomax] 0.4 mg PO DAILY 05/18/20 06/15/20 clonidine HCl 0.1 mg PO BIDP PRN 06/15/20 06/15/20 promethazine 50 mg PO QHS 06/15/20 06/15/20 trihexyphenidyl 2 mg PO QHS 06/15/20 06/15/20 Allergies Allergy/AdvReac Type Severity Reaction Status Date / Time cephalexin Allergy Severe Anaphylaxis Verified 06/15/20 16:13 doxycycline [From Vibramycin] Allergy Severe Anaphylaxis Verified 06/15/20 16:13 Penicillins Allergy Severe Anaphylaxis Verified 06/15/20 16:13 ciprofloxacin [From Cipro] Allergy Intermediate Swelling Verified 06/16/20 07:11 ketorolac [From Toradol] AdvReac Mild Anxiety Verified 06/15/20 16:13 metoclopramide [From Reglan] AdvReac Mild Other Verified 06/16/20 07:11 ondansetron AdvReac Mild Other Verified 06/16/20 07:11 [From Zofran (as hydrochloride)] prochlorperazine AdvReac Mild Other Verified 06/16/20 07:11 [From Compazine] Review of Systems ROS ROS Narrative: Narrative: All systems ED: reviewed and negative except as stated. [facility] Narrative Patient History Narrative: Narrative: Medical/Surgical/Family History All Active Problems (Updated 07/04/20 @ 23:16 by Filiberto Orourke MD) Nausea & vomiting (Acute) Abdominal pain (Acute) Laceration (Acute) Acute hyponatremia (Acute) Gastroenteritis (Acute) Acute hyponatremia (Acute) Hypocalcemia (Acute) Obesity (BMI 30.0-34.9) (Chronic) Pancreatitis, chronic (Chronic) Schizoaffective disorder (Chronic) Restless leg syndrome (Chronic) Medical History Abdominal pain (Resolved) Cyclical vomiting (Resolved) Epigastric pain (Resolved) Gastritis (Resolved) Hematemesis with nausea (Resolved) History of acute pancreatitis (Resolved) Intractable nausea and vomiting (Resolved) Nausea & vomiting (Resolved) Obesity (BMI 30.0-34.9) (Chronic) Pancreatitis, chronic (Chronic) Pneumonia (Resolved) Restless leg syndrome (Chronic) Schizoaffective disorder (Chronic) Surgical History Status post appendectomy (Acute) Status post cholecystectomy (Acute) Family History Father Pancreatic cancer Mother Diabetes mellitus, type 2 Brother Diabetes mellitus, type 2 Social History Smoking Status: Smokeless tobacco Exam Narrative Narrative: Narrative: No acute distress resting. Normocephalic atraumatic. Conjunctive are clear sclerae white nonicteric. No nasal discharge or conge stion. Oropharynx pink and moist. Neck is supple without lymphadenopathy or thyromegaly or carotid bruit. Heart is regular rate and rhythm no murmur appreciated. Lungs clear to auscultation bilaterally without wheezes rales rhonchi or respiratory distress. Abdomen soft diffusely tender but no point tenderness. No peritoneal signs but he is guarding some. No pedal edema. Alert oriented able to answer questions appropriately. No dysarthria or ataxia General Limitations: no limitations Course Vital Signs Vital signs: Vital Signs Temperature 97.3 F 07/04/20 19:12 Pulse Rate 98 H 07/04/20 19:12 Respiratory Rate 16 07/04/20 19:12 Blood Pressure 125/79 07/04/20 19:12 Pulse Oximetry (%) 96 07/04/20 19:12 Temperature 97.3 F 07/04/20 19:12 Pulse Rate 77 07/04/20 21:34 Respiratory Rate 15 07/04/20 21:34 Blood Pressure 126/77 07/04/20 21:34 Pulse Oximetry (%) 98 07/04/20 21:34 MDM MDM Narrative Medical decision making narrative: Narrative: Initially concern for gastroenteritis versus metabolic issues versus malignancy versus other intra-abdominal pathology. Start work-up with laboratory x-ray. IV fluids nausea medicine and Dilaudid for pain. He does have some significant allergys which limited my ability to treat his nausea-however he states that he can tolerate Zofran if we give him some diphenhydramine Urinalysis [id number] dipstick shows specific gravity 1.000-which is either really dilute or not a true sample. However his does report him drinking lots and lots of fluid-over 400 ounces today. X-ray of the abdomen is unrevealing-nonspecific gas pattern He received 2 L of fluid here while working him up. He again has hyponatremia at 123-this could be secondary to protein deficiency or psychogenic polydipsia or GI loss. Discussed results with the patient and his . He is uncomfortable going home as he does believe he can eat or drink without vomiting. He is concerned about his sodium levels although he is mentating normally at this time. Discussed situation with the hospitalist Dr. Mcqueen. He agreed to accept the patient for further care and evaluation in the hospital. Lab Data Lab results reviewed: Yes I reviewed the patient's lab results. Result diagrams: 07/04/20 21:24 07/04/20 21:24 Labs: Lab Results 07/04/20 07/04/20 07/04/20 Range/Units 21:24 21:24 21:24 WBC 7.0 (4.50-11.00) K/mcL RBC 4.44 L (4.63-6.08) M/mcL Hgb 13.5 L (13.7-17.5) g/dL Hct 38.9 L (40.1-51.0) % MCV 87.6 (80.0-100.0) fL MCH 30.4 (26.0-34.0) pg MCHC 34.7 (31.0-36.0) g/dL RDW 11.7 (11.5-14.5) % Plt Count 184 (140-440) K/mcL MPV 8.7 (7.4-10.4) fL Gran % 54.4 (38.0-78.0) % Lymph % (Auto) 37.9 (15.5-49.0) % Kleberg % (Auto) 6.7 (1.0-12.0) % Eos % (Auto) 0.6 (0.0-7.0) % Baso % (Auto) 0.4 (0.0-2.0) % Gran # 3.79 (1.80-8.00) K/mcL Lymph # (Auto) 2.64 (1.50-4.80) K/mcL Kleberg # (Auto) 0.47 (0.10-0.90) K/mcL Eos # (Auto) 0.04 (0.00-0.70) K/mcL Baso # (Auto) 0.03 (0.00-0.30) K/mcL VBG Lactic Acid 1.0 (0.5-2.0) mmol/L Sodium 123 L (133-145) mmol/L Potassium 3.5 (3.3-5.1) mmol/L Chloride 93 L (96-108) mmol/L Carbon Dioxide 20 L (22-30) mmol/L Anion Gap 10.0 (8-16) BUN 3 L (6-20) mg/dl Creatinine 0.8 (0.7-1.2) mg/dl GFR Calculation 111 Glucose 90 (70-105) mg/dL Calcium 7.8 L (8.6-10.4) mg/dl Total Bilirubin 0.5 (0.0-1.0) mg/dL AST 24 (0-37) U/l ALT 24 (0-40) U/l Alkaline Phosphatase 58 (39-117) U/L C-Reactive Protein < 0.3 (0.0-0.8) mg/dl Total Protein 6.0 (5.9-8.4) gm/dL Albumin 3.9 (3.2-5.2) gm/dL Globulin 2.1 L (2.2-3.7) gm/dL Albumin/Globulin Ratio 1.9 (1.0-2.3) Amylase 81 (28-100) U/L Lipase 26 (7-60) U/L Urinalysis [id number]-cr-resh dipstick is normal Radiology Data Radiology results reviewed: Yes I reviewed the patient's radiology results. Radiology results narrative: X-ray abdomen shows copious stool but nonspecific bowel gas pattern. No free air or air-fluid level Discharge Plan Patient/Caregiver Discharge Instructions Pt seen by ANALYTICAL TECH/PA only: No Clinical Impression: Gastroenteritis, Acute hyponatremia, Hypocalcemia Patient Disposition: Xfer As Inpt ([facility]) Condition: Fair Follow up with: Jose Robin ARNP [Primary Care Provider] - Prescriptions: No Action omeprazole 20 MG capsule,delayed release(DR/EC) 40 mg PO ACB RF: 0 olanzapine [Zyprexa] 20 MG tablet 20 mg PO HS RF: 0 lorazepam 2 MG tablet 1 mg PO TIDP PRN (Reason: Anxiety) RF: 0 divalproex [Depakote] 500 mg Tablet,Delayed Release (Dr/Ec) 500 mg PO QHS RF: 0 tamsulosin [Flomax] 0.4 mg Capsule 0.4 mg PO DAILY RF: 0 clonidine HCl 0.1 mg Tablet 0.1 mg PO BIDP PRN (Reason: Agitation) RF: 0 promethazine 50 mg Tablet 50 mg PO QHS RF: 0 trihexyphenidyl 2 mg Tablet 2 mg PO QHS RF: 0
[2020-07-04 22:28] LABS: Basophils # (Auto) 0.03 K/mcL (0.00-0.30); Basophils % (Auto) 0.4 % (0.0-2.0); Eosinophils # (Auto) 0.04 K/mcL (0.00-0.70); Eosinophils % (Auto) 0.6 % (0.0-7.0); Granulocytes % (Auto) 54.4 % (38.0-78.0); Hematocrit 38.9 % (40.1-51.0); Hemoglobin 13.5 g/dL (13.7-17.5); Lymphocytes # (Auto) 2.64 K/mcL (1.50-4.80); Lymphocytes % (Auto) 37.9 % (15.5-49.0); Mean Cell Volume 87.6 fL (80.0-100.0); Mean Corpuscular HGB Conc 34.7 g/dL (31.0-36.0); Mean Platelet Volume 8.7 fL (7.4-10.4); Monocytes # (Auto) 0.47 K/mcL (0.10-0.90); Monocytes % (Auto) 6.7 % (1.0-12.0); Platelet Count 184 K/mcL (140-440); RBC 4.44 M/mcL (4.63-6.08); Red Cell Distribution Width 11.7 % (11.5-14.5)
[2020-07-04 22:37] LABS: ALT/SGPT 24 U/l (0-40); AST/SGOT 24 U/l (0-37); Albumin 3.9 gm/dL (3.2-5.2); Albumin/Globulin Ratio 1.9 (1.0-2.3); Alkaline Phosphatase 58 U/L (39-117); Amylase 81 U/L (28-100); Bilirubin,Total 0.5 mg/dL (0.0-1.0); Blood Urea Nitrogen 3 mg/dl (6-20); C-Reactive Protein < 0.3 mg/dl (0.0-0.8); Calcium 7.8 mg/dl (8.6-10.4); Carbon Dioxide 20 mmol/L (22-30); Globulin 2.1 gm/dL (2.2-3.7); Glomerular Filtration Rate 111; Glucose 90 mg/dL (70-105)
[2020-07-04 22:38] LABS: Chloride 93 mmol/L (96-108)
[2020-07-04] MEDS ORDERED: POTASSIUM CHLORIDE 20 MEQ TABLET PO ONE (23:37)
[2020-07-05] MEDS ORDERED: 0.9 % SODIUM CHLORIDE 1,000 ML IV SCH (00:23)
[2020-07-05] MEDS ORDERED: ONDANSETRON 4 MG/2 ML VIAL IV PRN (00:23)
[2020-07-05] MEDS ORDERED: POTASSIUM CHLORIDE 20 MEQ TABLET PO ONE (00:44)
[2020-07-05] MEDS ORDERED: PROMETHAZINE 50 MG PO PRN (01:13)
[2020-07-05] MEDS ORDERED: cloNIDine HCL 0.1 MG TABLET PO PRN (01:13)
[2020-07-05] MEDS ORDERED: LORazepam 1 MG TABLET ONE ×2 (01:46→07:13)
[2020-07-05 01:47] LABS: Calcium 8.6 mg/dl (8.6-10.4); Carbon Dioxide 22 mmol/L (22-30); Chloride 97 mmol/L (96-108); Glomerular Filtration Rate 106; Glucose 90 mg/dL (70-105)
[2020-07-05 01:50] LABS: Blood Urea Nitrogen 4 mg/dl (6-20)
[2020-07-05] MEDS ORDERED: OLANZapine 5 MG TABLET PO ONE (01:50)
[2020-07-05] MEDS: DIVALPROEX SODIUM 250 MG TABLET PO SCH ×2 (01:58→20:41)
[2020-07-05] MEDS: HYDROcodone/APAP 10/325MG TABLET PO PRN ×4 (02:01→20:41)
[2020-07-05] MEDS ORDERED: HYDROcodone/APAP 10/325MG TABLET PO ONE (02:02)
[2020-07-05] MEDS: 0.9 % SODIUM CHLORIDE 10 ML SYRINGE IV SCH ×3 (05:20→23:28)
--- NOTE | 2020-07-05 05:47 | XRay Report ---
INDICATION: diarrhea, n/v TECHNIQUE: Supine and upright abdomen. COMPARISON: None FINDINGS:Gas and fecal material within the colon. No dilated gas-filled small bowel. Bowel gas pattern is unremarkable and nonobstructive. No pneumoperitoneum. No biliary or portal venous gas. No pneumatosis. There are surgical clips in right upper quadrant. IMPRESSION: Nonspecific and nonobstructive bowel gas pattern. No abnormality Interpreted and Authenticated by: Rylan Pinedo 07/05/20
[2020-07-05] MEDS ORDERED: PROMETHAZINE 25 MG TABLET PO ONE (07:00)
[2020-07-05] MEDS: DOCUSATE SODIUM 100 MG CAPSULE PO SCH ×2 (08:20→20:41)
[2020-07-05] MEDS: TAMSULOSIN 0.4 MG CAPSULE PO SCH (08:21)
[2020-07-05] MEDS: OMEPRAZOLE 20 MG CAPSULE PO SCH (08:21)
[2020-07-05] MEDS: LIPASE/PROTEASE/AMYLASE 1 CAP CAPSULE PO SCH ×3 (08:21→17:55)
[2020-07-05] MEDS: LORazepam 1 MG TABLET PO PRN ×2 (13:16→20:41)
--- NOTE | 2020-07-05 15:52 | Internal Med History&Physical ---
HPI History of Present Illness Patient information: Note initiated : 07/05/20 at 3:28 pm Service Date, if different from initiated Date: [] Patient: Gume Hobson a 39 y/o M admitted on 07/05/20 for n/v/d. Chief Complaint: nausea vomiting diarrhea and malaise History of present illness: Mr. Hobson is a 39 year old M with schizoaffective disorder. Initially diagnosed as schizophrenia but changed due to suspicion of bipolar disorder and higher degree of ambition. He is accompanied by his whom he has been to for 2 years. He tells me he used to drink 30 pk of beer x 2 daily for 12 years. 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 Says he has kids from past oldest 20 yo but has not been in contact. no kids from this marriage. Was diagnosed with chronic pancreatitis and treated with creon but stopped over 3 years ago. Still has bottles of it. Didnt think it changed his chronic diarrhea. has been seeing GI and had recent request for pain meds filled by February the GI PA. Pt says taking 2 x 10/325 mg [place] every 6 hours. says has been out for about 1 week. increased abd pain and diarrhea but has diarrhea all the tie anyway. Says he drinks lots of water and and he report 9 liters water daily. Pt had hyponatremia admission 06/15-06/17/2020 this month. He improved rapidly with saline infusion. Went home and still drinking lots of water. felt poorly and figured his salt was low again and it was so admitted via EMD. Pt is on multiple psychiatric meds potential causing SIADH or polydipsia. has not been on Creon in years. only learned during this discussion that he had sought pain meds at GI clinic and was upset he had hid this fact from her. Pt also sees Lily from PCP and Melita for counselor. Constitutional Constitutional: Present as per HPI, malaise and weakness; Absent anorexia, chills, fatigue and weight loss EENT Eyes: Absent other visual disturbances Cardiovascular Cardiovascular: Absent chest pain at rest, chest pain with activity, palpatations and pedal edema Respiratory Respiratory: Absent cough, dyspnea on exertion and wheezing Gastrointestinal Gastrointestinal: Present abdominal pain, diarrhea, nausea and vomiting; Absent constipation, hematemesis and melena Genitourinary Genitourinary: difficulty urinating, urinary frequency and other (dilute water like urine) Musculoskeletal Musculoskeletal: Absent abnormal gait Integumentary Integumentary: Absent new lesions and rash Neurological Neurological: Present abnormal movements (tardive) and dizziness Psychiatric Psychiatric: Present as per HPI, auditory hallucinations (some voices to hurt self or others. improved on zyprexa), depression and suicidal ideation (not currently but 8 months ago tried to jump of bridge. passerby pulled him down went for psyche admission and meds adjusted.) Endocrine Endocrine: Present as per HPI, polydipsia and polyuria Additional comments: hyponatremia earlier this month. Hematologic/Lymphatic Hematologic/Lymphatic: Absent easy bleeding and easy bruising PFSH PFSH All Active Problems (Updated 07/05/20 @ 15:51 by Andrez Mcqueen MD) Nausea & vomiting (Acute) Abdominal pain (Acute) Laceration (Acute) Acute hyponatremia (Acute) Gastroenteritis (Acute) Acute hyponatremia (Acute) Hypocalcemia (Acute) Obesity (BMI 30.0-34.9) (Chronic) Pancreatitis, chronic (Chronic) Schizoaffective disorder (Chronic) Restless leg syndrome (Chronic) Medical History Abdominal pain (Resolved) Cyclical vomiting (Resolved) Epigastric pain (Resolved) Gastritis (Resolved) Hematemesis with nausea (Resolved) History of acute pancreatitis (Resolved) Intractable nausea and vomiting (Resolved) Nausea & vomiting (Resolved) Obesity (BMI 30.0-34.9) (Chronic) Pancreatitis, chronic (Chronic) Pneumonia (Resolved) Restless leg syndrome (Chronic) Schizoaffective disorder (Chronic) Surgical History Status post appendectomy (Acute) Status post cholecystectomy (Acute) Family History Father Pancreatic cancer Mother Diabetes mellitus, type 2 Brother Diabetes mellitus, type 2 Social History (Updated 07/05/20 @ 15:43 by Andrez Mcqueen MD) household members: spouse marital status: occupational status: disabled smoking status: Smokeless tobacco alcohol intake frequency: former alcohol drinker substance use type: does not use and former substance user additional history: wants full code disabled on SSI says she is also due to bipolar disorder MEDS/ALLERGIES Home Medications and Allergies Home Medications Medication Instructions Recorded Confirmed Type olanzapine [Zyprexa] 20 mg PO HS 09/29/17 07/05/20 History omeprazole 40 mg PO ACB 09/29/17 07/05/20 History lorazepam 1 mg PO TIDP PRN 03/12/19 07/05/20 History tamsulosin [Flomax] 0.4 mg PO DAILY 05/18/20 07/05/20 History clonidine HCl 0.1 mg PO BIDP PRN 06/15/20 07/05/20 History promethazine 50 mg PO BID PRN 06/15/20 07/05/20 History trihexyphenidyl 2 mg PO QHS 06/15/20 07/05/20 History divalproex [Depakote ER] 750 mg PO HS 07/05/20 07/05/20 History hydrocodone-acetaminophen [[place]] 2 tab PO Q4H PRN 07/05/20 07/05/20 History Allergies Allergy/AdvReac Type Severity Reaction Status Date / Time cephalexin Allergy Severe Anaphylaxis Verified 06/15/20 16:13 doxycycline [From Vibramycin] Allergy Severe Anaphylaxis Verified 06/15/20 16:13 Penicillins Allergy Severe Anaphylaxis Verified 06/15/20 16:13 ciprofloxacin [From Cipro] Allergy Intermediate Swelling Verified 06/16/20 07:11 ketorolac [From Toradol] AdvReac Mild Anxiety Verified 06/15/20 16:13 metoclopramide [From Reglan] AdvReac Mild Other Verified 06/16/20 07:11 ondansetron AdvReac Mild Other Verified 06/16/20 07:11 [From Zofran (as hydrochloride)] prochlorperazine AdvReac Mild Other Verified 06/16/20 07:11 [From Compazine] EXAM Constitutional Vitals: Temp Pulse Resp BP Pulse Ox 98.0 F 79 18 118/78 97 07/05/20 12:00 07/05/20 12:00 07/05/20 12:00 07/05/20 12:00 07/05/20 12:00 Gen WDWN Man no apparent distress CV RRR [place] CTA bilat ABd soft mild diffuse tender no rebound Calves no edema Pulse 2+ bilat radial and dorsal pedal Skin warm and dry Neuro alert and oriented x 3 PERRLA speech mild slurred psyche affect flat oral malampati 3 DATA Data Completed and Pending Labs on day of discharge: Labs from last 24 hours 07/05/20 07/05/20 07/05/20 00:45 00:22 00:22 WBC RBC Hgb Hct MCV MCH MCHC RDW Plt Count MPV Gran % Lymph % (Auto) [place] % (Auto) Eos % (Auto) Baso % (Auto) Gran # Lymph # (Auto) [place] # (Auto) Eos # (Auto) Baso # (Auto) VBG Lactic Acid Sodium 130 L Potassium 3.8 Chloride 97 Carbon Dioxide 22 Anion Gap 11.0 BUN 4 L Creatinine 0.9 GFR Calculation 106 Glucose 90 Calcium 8.6 Total Bilirubin AST ALT Alkaline Phosphatase C-Reactive Protein Total Protein Albumin Globulin Albumin/Globulin Ratio Amylase Lipase Urine Osmolality 68 L Ur Random Sodium 21 07/04/20 07/04/20 07/04/20 21:24 21:24 21:24 WBC 7.0 RBC 4.44 L Hgb 13.5 L Hct 38.9 L MCV 87.6 MCH 30.4 MCHC 34.7 RDW 11.7 Plt Count 184 MPV 8.7 Gran % 54.4 Lymph % (Auto) 37.9 [place] % (Auto) 6.7 Eos % (Auto) 0.6 Baso % (Auto) 0.4 Gran # 3.79 Lymph # (Auto) 2.64 [place] # (Auto) 0.47 Eos # (Auto) 0.04 Baso # (Auto) 0.03 VBG Lactic Acid 1.0 Sodium 123 L Potassium 3.5 Chloride 93 L Carbon Dioxide 20 L Anion Gap 10.0 BUN 3 L Creatinine 0.8 GFR Calculation 111 Glucose 90 Calcium 7.8 L Total Bilirubin 0.5 AST 24 ALT 24 Alkaline Phosphatase 58 C-Reactive Protein < 0.3 Total Protein 6.0 Albumin 3.9 Globulin 2.1 L Albumin/Globulin Ratio 1.9 Amylase 81 Lipase 26 Urine Osmolality Ur Random Sodium A/P Assessment and plan (1) Acute hyponatremia: Status: Acute Comment: pt with apparent water intoxication. He has a propensity for overuse in past of illicits and alcohol. recently taking large number of vicodin for abd pain also and has been out. Has been drinking 9 liters of water daily and urine osmo 68 and urine na 20 consistent with polydipsia and polyuria syndrome. Im not sure if this directly related to his psychiatric illness or secondary to his psychiatric medications. (2) Nausea & vomiting: Status: Acute Comment: improved. cont treatment for hyponatremia with fluid restrict just to 3 liters /day start pancrease with meals Qualifiers: Vomiting Intractability: non-intractable Vomiting type: unspecified Qualified Code(s): R11.2 - Nausea with vomiting, unspecified (3) Pancreatitis, chronic: Status: Chronic Comment: start pancrease. consider measuring fecal fat if diarrhea. none here so far. (4) Schizoaffective disorder: Status: Chronic Comment: i think may have side effects of high nose meds but due to history of suicidal ideation and attempts will not adjust treatment without due consideration with his psychiatric provider. Time Spent With Patient Time: Total time spent is greater than 50% in coordination of care (as documented) at patient's floor/unit and/or counseling patient: 75 mins QUALITY VTE Deep Vein Thrombosis/Pulmonary Embolism Present on Admission: No
[2020-07-05] MEDS: PROMETHAZINE 25 MG TABLET PO PRN (17:58)
[2020-07-05 18:38] LABS: Blood Urea Nitrogen 5 mg/dl (6-20); Calcium 8.5 mg/dl (8.6-10.4); Carbon Dioxide 23 mmol/L (22-30); Chloride 99 mmol/L (96-108); Glomerular Filtration Rate 93; Glucose 91 mg/dL (70-105)
[2020-07-05] MEDS ORDERED: DIVALPROEX PO SCH (21:00)
[2020-07-05] MEDS ORDERED: SENNOSIDES 1 TABLET PO SCH (21:00)
[2020-07-05] MEDS ORDERED: OLANZapine 5 MG TABLET PO SCH (21:00)
[2020-07-05] MEDS ORDERED: OLANZAPINE 20 MG PO SCH (21:00)
[2020-07-06 00:25] LABS: Blood Urea Nitrogen 7 mg/dl (6-20); Calcium 8.5 mg/dl (8.6-10.4); Carbon Dioxide 23 mmol/L (22-30); Chloride 98 mmol/L (96-108); Glomerular Filtration Rate 93; Glucose 85 mg/dL (70-105)
[2020-07-06] MEDS: 0.9 % SODIUM CHLORIDE 10 ML SYRINGE IV SCH ×2 (07:34→14:24)
[2020-07-06] MEDS: OMEPRAZOLE 20 MG CAPSULE PO SCH (07:34)
[2020-07-06] MEDS: PROMETHAZINE 25 MG TABLET PO PRN (08:11)
[2020-07-06] MEDS: LORazepam 1 MG TABLET PO PRN ×2 (08:11→12:25)
[2020-07-06] MEDS: HYDROcodone/APAP 10/325MG TABLET PO PRN ×2 (08:12→14:24)
[2020-07-06] MEDS: DOCUSATE SODIUM 100 MG CAPSULE PO SCH (08:12)
[2020-07-06] MEDS: TAMSULOSIN 0.4 MG CAPSULE PO SCH (08:13)
[2020-07-06] MEDS: LIPASE/PROTEASE/AMYLASE 1 CAP CAPSULE PO SCH ×2 (08:13→12:25)
[2020-07-06 10:12] LABS: Blood Urea Nitrogen 8 mg/dl (6-20); Calcium 8.7 mg/dl (8.6-10.4); Carbon Dioxide 23 mmol/L (22-30); Chloride 96 mmol/L (96-108); Glomerular Filtration Rate 106; Glucose 105 mg/dL (70-105)
--- NOTE | 2020-07-06 15:17 | Discharge Summary ---
Discharge Provider Provider Patient information: Note initiated : 07/06/20 at 3:11 pm Service Date, if different from initiated Date: [] Patient: Gume Hobson 39 y/o M admitted on 07/05/20 for n/v/d. Chief Complaint: dizzy, nausea vomiting diarrhea pt has had hyponatremia twice admitted 06/15/20 with na 118 and now again with na 123. He had urine na 20 and urine osmo 68 this time. He is drinking 9 liters of liquid daily. accompanied by his Kristi the last 2 days of his visit. Date of admission: 07/05/20 00:25 Discharge date: 07/06/20 Primary care physician: Jose Robin Consults: 07/05/20 08:46 Consult to Physician [CONS] Routine Comment: Consulting Provider: Andrez Mcqueen Reason For Exam: Physician to Consult Discharge Meds Discharge Medications Home Medications olanzapine [Zyprexa] 20 mg PO HS 09/29/17 [History Confirmed 07/05/20 Last Taken 07/03/20] omeprazole 40 mg PO ACB 09/29/17 [History Confirmed 07/05/20 Last Taken 07/04/20] lorazepam 1 mg PO TIDP PRN 03/12/19 [History Confirmed 07/05/20 Last Taken 07/04/20] tamsulosin [Flomax] 0.4 mg PO DAILY 05/18/20 [History Confirmed 07/05/20 Last Taken 07/05/20 00:37] clonidine HCl 0.1 mg PO BIDP PRN 06/15/20 [History Confirmed 07/05/20 Last Taken 07/05/20 00:33] promethazine 50 mg PO BID PRN 06/15/20 [History Confirmed 07/05/20 Last Taken 06/15/20 15:00] trihexyphenidyl 2 mg PO QHS 06/15/20 [History Confirmed 07/05/20 Last Taken 0 07/03/20] divalproex [Depakote ER] 750 mg PO HS 07/05/20 [History Confirmed 07/05/20 Last Taken Unknown] hydrocodone-acetaminophen [[place]] 2 tab PO Q4H PRN 07/05/20 [History Confirmed 07/05/20 Last Taken 07/04/20] afache-bjoejizm-rbxszjd [Creon] 1 cap PO TIDCC #90 cap 07/06/20 [Rx Last Taken Unknown] COURSE Hospital Course Hospital course: pt was limited to 3 liters fluid daily. His serum na is maintained at 132. He is on multiple psyche meds that can cause siadh though his urine osmo shows not siadh. Also his psyche meds can cause polydipsia or his schizoaffective disorder could be causing it. He will follow up with personnel research psychologistDERREK Graham Discharge diagnosis: hyponatremia Secondary discharge diagnosis: polydipsia chronic abdominal pain chronic pancreatitis schizoaffective disorder Reason for admission: hyponatremia Time Spent with Patient Time attestation: Total time spent providing and/or coordinating discharge services: 35 Time spent: Greater than 30 minutes Specific discharge activities: limit fluid to 6 x 16 oz bottles of water daily. if drinking other fluid need to subtract other fluid from his water intake. limit is equal to 3 liters a day. EXAM Constitutional Vitals: Temp Pulse Resp BP Pulse Ox 98.6 F 74 16 115/73 95 07/06/20 12:00 07/06/20 12:00 07/06/20 12:00 07/06/20 12:00 07/06/20 12:00 Gen WDWN WM NAD CV RRR Lungs CTA Abd soft NTND Calves no edema Mentation alert and orient affect flat. Discharge Data Data Completed and Pending Labs on day of discharge: Labs from last 24 hours 07/06/20 07/05/20 07/05/20 09:15 22:25 17:00 Sodium 132 L 133 133 Potassium 4.4 4.5 4.4 Chloride 96 98 99 Carbon Dioxide 23 23 23 Anion Gap 13.0 12.0 11.0 BUN 8 7 5 L Creatinine 0.9 1.0 1.0 GFR Calculation 106 93 93 Glucose 105 85 91 Calcium 8.7 8.5 L 8.5 L Discharge Plan Patient/Caregiver Discharge Instructions Activity: increase activity as tolerated Diet: Regular Diet Prescriptions: New Creon 6,000-19,000 -30,000 unit Capsule,Delayed Release(Dr/Ec) 1 cap PO TIDCC Qty: 90 RF: 1 Continued omeprazole 20 MG capsule,delayed release(DR/EC) 40 mg PO ACB RF: 0 olanzapine [Zyprexa] 20 MG tablet 20 mg PO HS RF: 0 lorazepam 2 MG tablet 1 mg PO TIDP PRN (Reason: Anxiety) RF: 0 tamsulosin [Flomax] 0.4 mg Capsule 0.4 mg PO DAILY RF: 0 clonidine HCl 0.1 mg Tablet 0.1 mg PO BIDP PRN (Reason: Agitation) RF: 0 promethazine 50 mg Tablet 50 mg PO BID PRN (Reason: Nausea) RF: 0 trihexyphenidyl 2 mg Tablet 2 mg PO QHS RF: 0 hydrocodone-acetaminophen [[place]] 10-325 mg Tablet 2 tab PO Q4H PRN (Reason: Pain, Moderate) RF: 0 divalproex [Depakote ER] 250 mg Tablet Extended Release 24 Hr 750 mg PO HS RF: 0 Follow Up Plan Follow up with: Jose Robin ARNP [Primary Care Provider] - Patient Disposition: Home, Self-Care Prognosis: Fair Rehab Potential: Fair I certify that the patient requires SNF services: No Overall status at discharge: patient is back to baseline Discharge Orders: Discharge Order (Routine); Ordered 07/06/20 Ordered By: Andrez GRAY VTE Deep Vein Thrombosis/Pulmonary Embolism Present on Admission: No
== END 2020-07-06 16:40 | disposition home or self-care (01) | DRG 641 ==
LOC: ED 19:11 → ICU 07-05 00:15
PROVIDERS: ADMIT Internal Medicine; ATTEND Internal Medicine